=== PATIENT | female | born 1950 ===

== ENCOUNTER 2018-03-26 08:14 | Day surgery (SDC) | payer OTHER ==
[~2018-03-26] VITALS: Ht 162.6 cm; Wt 82.5 kg
[~2018-03-26 08:14] MED LIST: ADULT ASPIRIN81 MG PO; ALBUIS INH; ASPI325 PO; ASPI81EC PO; ATEN25; ATEN50 PO; CIPR500 PO; CVS GLUCOSAMIN PO; FISH1000 PO; FURO40 PO; HYDACE5 PO; HYDROCODON-ACE1 EAC3 PO; LOW DOSE ASPIRI81 MG PO; METO50ER PO; MINO100 PO; NAPR500 PO; Naprosyn375 MG PO; PANT20 PO; POTA10T PO; PRED20; WARF5 PO; Zofran8 MG PO
== END 2018-03-26 09:47 | disposition home or self-care (01) ==
LOC: ORSCMMR 08:14 → ORD 09:00 → ORSCMMR 09:00
PROVIDERS: Internal Medicine Gastroenterology
PROC: 0DBN8ZX Excision of Sigmoid Colon, Via Natural or Artificial Opening Endoscopic, Diagnostic (ICD-10-PCS; principal; 2018-03-26 09:00)
DX: Z12.11 Encounter for screening for malignant neoplasm of colon (principal); K63.5 Polyp of colon; D12.5 Benign neoplasm of sigmoid colon; K57.30 Diverticulosis of large intestine without perforation or abscess without bleeding; Z86.010 Personal history of colon polyps; Z85.42 Personal history of malignant neoplasm of other parts of uterus; Z85.72 Personal history of non-Hodgkin lymphomas; Z85.528 Personal history of other malignant neoplasm of kidney; I10 Essential (primary) hypertension; Z79.82 Long term (current) use of aspirin; Z79.899 Other long term (current) drug therapy
CPT/HCPCS: 88305; J7120

== ENCOUNTER 2024-01-13 07:13 | Day surgery (SDC) | payer OTHER ==
[~2024-01-13] VITALS: Ht 160 cm; Wt 79.6 kg
[~2024-01-13 07:13] MED LIST changes: +Amlodipine Bes2.5 MG PO; +Balanced Salt Epinephrine Irrigation Solution 500 mL IR SCH; +CYMBALTA60 M1 PO; +HYDROCODONE-AC1 EA19 PO; +Lidocaine HCl/Pf 1% 5 ML VIAL ONE; +Lidocaine HCl/Pf 1% 5 ML VIAL XX SCH; +Moxifloxacin HCL 0.5 MG/0.1 ML 0.4MLSYR LEFTEYE SCH; +NS 500 ML IV ONE; +OMEGA-3 FISH O1 EA13 PO; +PHENYLEPHRINE\\TROPICAMIDE\\TETRACAINE OPHTHALMIC DILATING SOLN LEFTEYE PRN; +PRAVASTATIN SOD10 MG PO; +Povidone-Iodine 450 DROP/30 ML Solution LEFTEYE SCH; +Povidone-Iodine 450 DROP/30 ML Solution ONE; +VITAMIN D5000 UNIT PO
[2024-01-13] MEDS ORDERED: NS 500 ML IV ONE (07:56)
--- NOTE | 2024-01-13 07:57 | NUR ---
01/13/24 0757 Rocky Walter CALL LIGHT WITHIN REACH. TETRACAINE IN LEFT EYE AT 0757 AND PLEDGETT IN AT 0758
[2024-01-13] MEDS ORDERED: Tetracaine HCl 0.5% Opth Soln 15 ml LEFTEYE ONE (08:28)
[2024-01-13] MEDS ORDERED: FentaNYL Citrate 50 MCG/ML 2 ML Injection ONE (08:31)
[2024-01-13] MEDS ORDERED: Ketorolac Tromethamine 30mg Vial ONE (08:32)
[2024-01-13] MEDS ORDERED: Midazolam HCl 1MG / ML 2ML Vial ONE (08:32)
[2024-01-13 09:00] VITALS: BP 178/94
== END 2024-01-13 09:18 | disposition home or self-care (01) ==
LOC: ORSCSDS 07:13
PROVIDERS: Student in an Organized Health Care Education/Training Program
PROC: 08RK3JZ Replacement of Left Lens with Synthetic Substitute, Percutaneous Approach (ICD-10-PCS; principal; 2024-01-13 08:30)
DX: H25.812 Combined forms of age-related cataract, left eye (principal); F41.9 Anxiety disorder, unspecified; I10 Essential (primary) hypertension; K21.9 Gastro-esophageal reflux disease without esophagitis; G62.9 Polyneuropathy, unspecified; Z87.891 Personal history of nicotine dependence; Z79.899 Other long term (current) drug therapy
CPT/HCPCS: J1885; J2001; J2250; J3010; J7040; V2632

== ENCOUNTER 2024-03-12 12:36 | Inpatient (IN) | payer OTHER ==
[2024-03-10 04:55] LABS: BASOPHILS ABSOLUTE AUTO 0.03 K/mm3 (0.00-0.23); BASOPHILS PERCENT AUTO 0 % (0-2); EOSINOPHILS PERCENT AUTO 0 % (0-6); Hematocrit 41.7 % (33.0-51.0); Hemoglobin 13.4 g/dL (11.5-16.0); IMMATURE GRAN ABSOLUTE AUTO 0.03 K/mm3 (0.00-0.10); IMMATURE GRAN PERCENT AUTO 0 % (0-1); LYMPHOCYTES ABSOLUTE AUTO 1.35 K/mm3 (0.84-5.20); LYMPHOCYTES PERCENT AUTO 12 % (21-46); MONOCYTES ABSOLUTE AUTO 0.72 K/mm3 (0.16-1.47); MONOCYTES PERCENT AUTO 6 % (4-13); Mean Corpuscular HGB 30.4 pg (26.0-34.0); Mean Corpuscular HGB Conc 32.1 g/dL (31.5-36.5); Mean Corpuscular Volume 95 fL (80-100); NEUTROPHILS ABSOLUTE AUTO 9.13 K/mm3 (1.96-9.15); NEUTROPHILS PERCENT AUTO 81 % (41-73); Platelet Count 296 K/mm3 (150-400); RDW Coefficient Variation 17.3 % (11.7-14.2); RDW Standard Deviation 59.7 fL (35.1-46.3); Red Blood Cell Count 4.41 M/mm3 (3.80-5.20); White Blood Cell Count 11.26 K/mm3 (4.00-11.30)
[2024-03-10 05:53] LABS: Bun/Creatinine Ratio 27.9 (12.0-20.0); Calcium, Blood 8.8 mg/dL (8.5-10.1); Creatinine, Blood 0.72 mg/dL (0.40-1.00); Magnesium, Blood 2.3 mg/dL (1.6-2.4)
[~2024-03-12] VITALS: Ht 154.9 cm; Wt 97.3 kg
[2024-03-12 10:42] LABS: PCO2 Arterial 41.1 mmHg (35-45); PO2 Arterial 333 mmHg (80-100); pH Blood Arterial 7.17 (7.35-7.45)
[2024-03-12 11:20] LABS: BASOPHILS ABSOLUTE AUTO 0.04 K/mm3 (0.00-0.23); BASOPHILS PERCENT AUTO 0 % (0-2); EOSINOPHILS ABSOLUTE AUTO 0.06 K/mm3 (0.00-0.68); EOSINOPHILS PERCENT AUTO 1 % (0-6); Hematocrit 37.2 % (33.0-51.0); Hemoglobin 11.7 g/dL (11.5-16.0); IMMATURE GRAN ABSOLUTE AUTO 0.19 K/mm3 (0.00-0.10); IMMATURE GRAN PERCENT AUTO 2 % (0-1); LYMPHOCYTES ABSOLUTE AUTO 2.42 K/mm3 (0.84-5.20); LYMPHOCYTES PERCENT AUTO 20 % (21-46); MONOCYTES ABSOLUTE AUTO 0.98 K/mm3 (0.16-1.47); MONOCYTES PERCENT AUTO 8 % (4-13); Mean Corpuscular HGB 30.6 pg (26.0-34.0); Mean Corpuscular HGB Conc 31.5 g/dL (31.5-36.5); Mean Corpuscular Volume 97 fL (80-100); Mean Platelet Volume 10.5 fL (9.1-12.4); NEUTROPHILS ABSOLUTE AUTO 8.47 K/mm3 (1.96-9.15); NEUTROPHILS PERCENT AUTO 70 % (41-73); Platelet Count 218 K/mm3 (150-400); RDW Coefficient Variation 16.9 % (11.7-14.2); RDW Standard Deviation 60.5 fL (35.1-46.3); Red Blood Cell Count 3.82 M/mm3 (3.80-5.20); White Blood Cell Count 12.16 K/mm3 (4.00-11.30)
[2024-03-12 11:35] LABS: Albumin, Blood 2.2 g/dL (3.4-5.0); Albumin/Globulin Ratio 0.5 (0.8-1.8); Bilirubin, Total 0.8 mg/dL (0.1-1.0); Bun/Creatinine Ratio 26.5 (12.0-20.0); Calcium, Blood 8.1 mg/dL (8.5-10.1); Creatinine, Blood 0.75 mg/dL (0.40-1.00); Globulin, Blood 4.6 g/dL (2.2-4.0); Potassium, Blood 4.7 mmol/L (3.5-5.5); Total Protein, Blood 6.8 g/dL (6.4-8.2)
[2024-03-12 11:43] LABS: D-Dimer, Quantitative 2.61 mg/L FEU (0.00-0.52); International Normalized Ratio 1.1; Prothrombin Time Results 11.7 Sec (9.7-11.5)
[~2024-03-12 12:36] MED LIST changes: -Balanced Salt Epinephrine Irrigation Solution 500 mL IR SCH; +KETO.5OPSO LEFTEYE; -Lidocaine HCl/Pf 1% 5 ML VIAL ONE; -Lidocaine HCl/Pf 1% 5 ML VIAL XX SCH; -Moxifloxacin HCL 0.5 MG/0.1 ML 0.4MLSYR LEFTEYE SCH; -NS 500 ML IV ONE; +OCUFLOX511 LEFTEYE; -PHENYLEPHRINE\\TROPICAMIDE\\TETRACAINE OPHTHALMIC DILATING SOLN LEFTEYE PRN; +PRED FORTE5 M1 LEFTEYE; -Povidone-Iodine 450 DROP/30 ML Solution LEFTEYE SCH; -Povidone-Iodine 450 DROP/30 ML Solution ONE
[2024-03-12 14:20] LABS: Hematocrit 36.4 % (33.0-51.0); Hemoglobin 11.8 g/dL (11.5-16.0)
--- NOTE | 2024-03-12 14:35 | NUR ---
DUE TO ADMISSION ISSUES THE PT WAS MADE A NEW PROFILE TODAY. SEE LIFETIME SUMMARY FOR OTHER DETAILS THIS STAY. SHE CAME IN FOR AN ELECTIVE SURGERY ON 03/09 AND WAS SWITCHED TO INPAITENT TODAY AFTER A NEAR SYNCOPAL EPISODE.
[2024-03-12] MEDS ORDERED: OxyCODONE 5 mg/Acetamin 325 mg TABLET PO PRN (15:10)
[2024-03-12] MEDS ORDERED: Lactated Ringer's 1,000 ML IV SCH (15:15)
[2024-03-12] MEDS ORDERED: Acetaminophen 325 MG TABLET PO PRN (15:15)
[2024-03-12 15:20] VITALS: BP 89/68
[2024-03-12] MEDS ORDERED: OxyCODONE HCL 5 MG TAB PO PRN (15:20)
[2024-03-12] MEDS ORDERED: Promethazine HCl 25 MG Tab PO PRN (15:20)
[2024-03-12] MEDS ORDERED: Magnesium Hydroxide Conc 10 ML UDC PO PRN (15:20)
[2024-03-12] MEDS ORDERED: diphenhydrAMINE HCl 12.5 MG/5 ML 5MLUDC (Alcohol/Dye Free) PO PRN (15:25)
[2024-03-12] MEDS ORDERED: Bisacodyl 10 MG Supp PR PRN (15:25)
[2024-03-12] MEDS ORDERED: Ondansetron HCl 2 MG / ML 2ML Vial IV PRN (15:25)
[2024-03-12] MEDS ORDERED: Metoclopramide HCl 5MG / ML 2ML Vial IV PRN (15:25)
[2024-03-12 16:00] VITALS: BP 92/64
[2024-03-12 16:55] LABS: Anti-Xa UFH, PHA Monitoring <0.10 IU/mL
[2024-03-12] MEDS ORDERED: Dose Adjust by Pharmacy XX STA (17:08)
[2024-03-12] MEDS ORDERED: Heparin Sodium 5000 Units/ML 1ML MDV IV ONE ×2 (17:10→23:45)
[2024-03-12] MEDS ORDERED: Heparin Sodium,Porcine/0.5 NS 500 ML IV SCH (17:10)
[2024-03-12 17:52] VITALS: BP 111/67
--- NOTE | 2024-03-12 18:25 | NUR ---
SHIFT SUMMARY THE PT WAS A RAPID RESPONSE TODAY FROM 220. SHE HAS BEEN SR ON TELE, BP SOFT BUT STABLE, AND SHE DENIES ANY ANGINA OR CHEST PRESSURE. CT PE NEGATIVE, ECHO DONE TODAY PENDING RESULTS. PT WILL BE NPO AT 0000 PER HOSPITALIST TEAM. HEP GTT INFUSING. THE PT IS POD THREE AND DR. MACKEY WAS UPDATED ABOUT THE PT'S UP TRENDING TROP, EKG CHANGES, AND START OF HEP GTT. SHE IS WANITNG THE PT'S LEFT KNEE WRAPPED WITH UMESH WRAP AND FOR USE TO MONITOR FOR BLEEDING. ICE PACK PER MD ORDERS. THE PT HAS BEEN DROWSY BUT ORIENTED. SHE HAS DENIED PAIN EXCEPT WITH MOVEMENT SHE DOES HAVE SOME PAIN. WE TRIED GETTING THE PT TO THE BSC AND SHE WAS UNABLE TO WALK, BUT WAS ANXIOUS BECAUSE OF HER NEAR SYNCOPAL EPISODE EARLIER IN THE DAY. WHILE STANDING THE PT DENIED DIZZINESS. SHE WAS ABLE TO USE THE BSC AND HAS HAD 400CC OUT SO FAR THIS SHIFT. THE PT WAS TITRAITED TO RA AND HER SP02 DROPPED TO HIGH 70'S. SHE IS ON 2L NC W/ SP02 >90% SHE DENIES ANY SOB. SEE NOTES FOR ANY UPDATES.
[2024-03-12 20:09] VITALS: BP 110/73
[2024-03-12] MEDS ORDERED: Docusate Sodium 100 MG Cap PO PRN (21:00)
[2024-03-12 23:09] VITALS: BP 117/65
[2024-03-13 03:17] VITALS: BP 125/69
--- NOTE | 2024-03-13 06:07 | NUR ---
SHIFT SUMMARY: HEP GTT RUNNING, NO SIGNS OF NEW BLEEDING ON L KNEE INCISION. TROPONINS NOT YET PEAKED. NEURO: PT LETHARGIC AT BEGINNING OF SHIFT. QUICKLY FALLING ASLEEP AFTER BEING WOKEN UP. FOLLOWED DIRECTIONS, PUPILS, BRISK AND EQUAL. BASELINE RIGHT SHOULDER WEAKNESS PER PT. A/OX4. CARDIAC: ECHO SHOWED THROMBUS IN RV. PT ON TELE WITH NO ECTOPY NOTED. LUNGS: PT ON 1L THROUGHOUT THE NIGHT. PT WAS SHALLOW BREATHING AND THEN WOULD HAVE PAUSES IN RESPIRATIONS WHILE SLEEPING. PT EDUCATED ON NARCOTIC USE UNTIL RESPIRATIONS NORMALIZED. GI/: PT UTILIZING BEDPAN. NPO SINCE MIDNIGHT. LAST BM 03/13/24 SKIN: AQUACELMEDIPORE DRESSING TO L KNEE INCISION, FOLLOWED BY UMESH WRAP AND COOLING THERAPY. NO NEW SHADOWING.
[2024-03-13 06:40] LABS: BASOPHILS ABSOLUTE AUTO 0.04 K/mm3 (0.00-0.23); BASOPHILS PERCENT AUTO 0 % (0-2); EOSINOPHILS ABSOLUTE AUTO 0.22 K/mm3 (0.00-0.68); EOSINOPHILS PERCENT AUTO 2 % (0-6); Hematocrit 35.2 % (33.0-51.0); Hemoglobin 11.1 g/dL (11.5-16.0); IMMATURE GRAN ABSOLUTE AUTO 0.05 K/mm3 (0.00-0.10); IMMATURE GRAN PERCENT AUTO 0 % (0-1); LYMPHOCYTES ABSOLUTE AUTO 3.14 K/mm3 (0.84-5.20); LYMPHOCYTES PERCENT AUTO 27 % (21-46); MONOCYTES ABSOLUTE AUTO 1.05 K/mm3 (0.16-1.47); MONOCYTES PERCENT AUTO 9 % (4-13); Mean Corpuscular HGB 30.3 pg (26.0-34.0); Mean Corpuscular HGB Conc 31.5 g/dL (31.5-36.5); Mean Corpuscular Volume 96 fL (80-100); Mean Platelet Volume 10.7 fL (9.1-12.4); NEUTROPHILS ABSOLUTE AUTO 7.01 K/mm3 (1.96-9.15); NEUTROPHILS PERCENT AUTO 61 % (41-73); NRBC ABSOLUTE 0.02 K/mm3 (0.00-0.02); NRBC Auto 0.2 /100 WBC (0.0-0.2); Platelet Count 234 K/mm3 (150-400); RDW Coefficient Variation 16.8 % (11.7-14.2); RDW Standard Deviation 59.4 fL (35.1-46.3); Red Blood Cell Count 3.66 M/mm3 (3.80-5.20); White Blood Cell Count 11.51 K/mm3 (4.00-11.30)
[2024-03-13 07:00] LABS: Alanine Aminotransfer (ALT/SGP 25 U/L (12-78); Albumin, Blood 2.1 g/dL (3.4-5.0); Albumin/Globulin Ratio 0.5 (0.8-1.8); Alk Phos 92 U/L (50-136); Anion Gap 8 mmol/L (3-11); Aspartate Aminotrans (AST/SGOT 49 U/L (12-37); Bilirubin, Total 0.8 mg/dL (0.1-1.0); Blood Urea Nitrogen 20 mg/dL (8-24); Bun/Creatinine Ratio 28.3 (12.0-20.0); CO2, Blood 27 mmol/L (21-32); Chloride, Blood 101 mmol/L (98-108); Cholesterol 128 mg/dL (50-200); Creatinine, Blood 0.71 mg/dL (0.40-1.00); Globulin, Blood 4.4 g/dL (2.2-4.0); Glomerular Filtration Rate 89 (60-); Glucose, Blood 108 mg/dL (70-99); HDL Cholesterol 42 mg/dL (>39); LDL/HDL RATIO 1.6; Low Density Lipoprotein Chol 67 mg/dL (0-110); Potassium, Blood 4.6 mmol/L (3.5-5.5); Sodium, Blood 131 mmol/L (136-145); Total Protein, Blood 6.5 g/dL (6.4-8.2); Triglycerides 95 mg/dL (30-160); Very Low Density Lipoprot Chol 19 mg/dL (6-32)
[2024-03-13] MEDS ORDERED: Dose Adjust by Pharmacy XX STA ×2 (07:26→14:38)
[2024-03-13] MEDS ORDERED: Heparin Sodium 5000 Units/ML 1ML MDV IV ONE ×2 (07:30→22:00)
[2024-03-13 07:39] VITALS: BP 123/110
[2024-03-13] MEDS ORDERED: Atorvastatin 40 MG Tab PO SCH (09:00)
[2024-03-13] MEDS ORDERED: Enoxaparin 40 MG/0.4 ML SYR SC SCH (09:00)
[2024-03-13] MEDS ORDERED: Aspirin 81 MG TabEC PO SCH (09:00)
[2024-03-13] MEDS ORDERED: DULoxetine HCL 30 MG Cap DR PO SCH (09:00)
[2024-03-13] MEDS ORDERED: Polyethylene Glycol 3350 17 gm PO PRN (10:10)
[2024-03-13 11:45] VITALS: BP 87/55
[2024-03-13 15:50] VITALS: BP 105/65
--- NOTE | 2024-03-13 18:36 | NUR ---
SHIFT SUMMARY THE PT IS DROWSY BUT ORIENTEDX4, AND CALLS APPROPRAITELY. SHE HAS A PW SET TO LIS. THE PT IS A Q2 TURN. SHE WAS MEDICATED ONCE FOR LEFT KNEE PAIN AFTER ATTEMPTING TO WORK WITH PT. SHE IS POD4 FOR A LEFT TOTAL KNEE. THE PT HAS CYROTHERAPY IN PLACE AND HER L KNEE IS WRAPPED WITH UMESH WRAP AT THIS TIME. THE PT IS ON A HEP GTT BEING MANAGED BY PHARMACY. NO ACUTE EVENTS.
[2024-03-13 19:38] VITALS: BP 112/69
[2024-03-13 23:32] VITALS: BP 112/74
[2024-03-14 04:15] VITALS: BP 130/81
--- NOTE | 2024-03-14 04:52 | NUR ---
SHIFT SUMMARY- NO NEW CHANGES NEURO-A/OX4, MOVES ALL EXTREMETIES. BASELINE WEAKNESS TO RIGHT SHOULDER. CARDIAC: HEPARIN GTT. TRACE BLE EDEMA. BOONE HOSE OFF THIS SHIFT. LUNGS: PT REMAINS ON 1L NC. SLEEPING WITH HOB ELEVATED. LESS APNEIC PERIODS THIS SHIFT. GI/: PUREWICK IN PLACE. CLEAR YELLOW URINE. LAST BM 03/13/24. SKIN: AQUACEL MEDIPORE DRESSING IN PLACE. NO NEW SHADOWING. NO NEW BRUISING TO L KNEE. UMESH BANDAGE IN PLACE. CRYOTHERAPY TO LEFT KNEE. PT REPOSITIONED WITH STAFF EVERY Q2 HOURS.
[2024-03-14 05:01] LABS: BASOPHILS ABSOLUTE AUTO 0.06 K/mm3 (0.00-0.23); BASOPHILS PERCENT AUTO 1 % (0-2); EOSINOPHILS PERCENT AUTO 3 % (0-6); Hematocrit 34.9 % (33.0-51.0); Hemoglobin 11.3 g/dL (11.5-16.0); IMMATURE GRAN ABSOLUTE AUTO 0.08 K/mm3 (0.00-0.10); IMMATURE GRAN PERCENT AUTO 1 % (0-1); LYMPHOCYTES ABSOLUTE AUTO 3.39 K/mm3 (0.84-5.20); LYMPHOCYTES PERCENT AUTO 29 % (21-46); MONOCYTES ABSOLUTE AUTO 1.13 K/mm3 (0.16-1.47); MONOCYTES PERCENT AUTO 10 % (4-13); Mean Corpuscular HGB 30.5 pg (26.0-34.0); Mean Corpuscular HGB Conc 32.4 g/dL (31.5-36.5); Mean Corpuscular Volume 94 fL (80-100); Mean Platelet Volume 10.9 fL (9.1-12.4); NEUTROPHILS ABSOLUTE AUTO 6.67 K/mm3 (1.96-9.15); NEUTROPHILS PERCENT AUTO 57 % (41-73); NRBC ABSOLUTE 0.03 K/mm3 (0.00-0.02); NRBC Auto 0.3 /100 WBC (0.0-0.2); Platelet Count 286 K/mm3 (150-400); RDW Coefficient Variation 17.1 % (11.7-14.2); RDW Standard Deviation 58.5 fL (35.1-46.3); Red Blood Cell Count 3.71 M/mm3 (3.80-5.20); White Blood Cell Count 11.73 K/mm3 (4.00-11.30)
[2024-03-14] MEDS ORDERED: Dose Adjust by Pharmacy XX STA (05:12)
[2024-03-14 05:39] LABS: Bun/Creatinine Ratio 28.3 (12.0-20.0); Calcium, Blood 8.4 mg/dL (8.5-10.1); Creatinine, Blood 0.64 mg/dL (0.40-1.00); Potassium, Blood 4.4 mmol/L (3.5-5.5)
[2024-03-14 07:24] VITALS: BP 107/88
[2024-03-14 11:00] VITALS: BP 127/76
--- NOTE | 2024-03-14 11:32 | NUR ---
MORNING SUMMARY THE PT IS POD 5 FOR A TOTAL LEFT KNEE. SHE REMAINS A&OX4, VS STABLE, AND CALLS APPROPRAITELY. SHE HAS BEEN SR ON TELE, BP STABLE, AND SHE IS ON 1L NC TO MAINTAIN SP02 >90%. THE PT WAS TRIALED ON RA AND SHE DESATURATED TO SP02 80'S, PT BACK ON 1L NC. SHE DENIES SOB, BUT THERE IS NOTED CRACKLES IN THE PT'S LUNG BASES. THE INCENTIVESPIROMETER AND DEEP BREATHING HAS BEEN ENCOURAGE T/O THE MORNING. THE PT WAS C/O 5/10 LEFT KNEE PAIN AND WAS MEDICATED WITH TYLENOL. CYROTHERAPY REMAINS IN PLACE. DRESSING REMAINS INTACT, UMESH WRAP OVER KNEE D/T HEPARIN AND LOVENOX. LATE MORNING THE PT WAS SWITCHED FROM A HEP GTT TO LOVENOX. NO SIGNS OF BLEEDING NOTED. PW SET UP TO SUCTION AND Q2 TURNS. THE PT HAS NOT BEEN SUCCESFUL WITH AMBULATING SINCE HER NEAR SYNCOPAL EPISODE ON 03/12. FAMILY AT THE BEDSIDE AND UPDATED ON CARE.SHE IS NOW SURGICAL STATUS AND AWAITING FOR A ROOM ASSIGNMENT. SEE NOTES FOR UPDATES.
[2024-03-14] MEDS ORDERED: Enoxaparin 100 MG/ML 1ML SYR SC SCH (12:00)
--- NOTE | 2024-03-14 13:03 | NUR ---
PT TRANSFERED TO 212 REPORT GIVEN TO KELLI Arroyo RN. FAMILY AT BEDSIDE AND UPDATED ON TRANSFER TO SURGICAL FLOOR.
--- NOTE | 2024-03-14 13:05 | NUR ---
PCU 10 TO 212 PT BROUGHT OVER TO ROOM 212 FROM PCU ON HER BED, ORIENTED TO NEW ROOM, POLAR PACK ADJUSTED AFTER VISUALIZING HER DRESSING, FAMILY AT BEDSIDE, DISCUSSED TRANSITIONING FROM PUREWICK TO BEDPAN OR THE MORE IDEAL BSC. NO CONCERNS AT THIS TIME.
[2024-03-14 14:44] VITALS: BP 116/68
--- NOTE | 2024-03-14 17:29 | NUR ---
SHIFT SUMMARY POD5 L TKA, A/OX4, VSS, TOLERATING PO, DISCONTINUED USE OF THE PUREWICK AND USED A BEDPAN WITH PLAN TO USE BSC TOMORROW. PAIN WELL MANAGED, NO CHANGE IN DRAINAGE ON AQUACELL DRESSING.
[2024-03-14 22:19] VITALS: BP 139/75
[2024-03-15 03:55] VITALS: BP 137/82
[2024-03-15 04:46] LABS: BASOPHILS ABSOLUTE AUTO 0.08 K/mm3 (0.00-0.23); BASOPHILS PERCENT AUTO 1 % (0-2); EOSINOPHILS ABSOLUTE AUTO 0.45 K/mm3 (0.00-0.68); EOSINOPHILS PERCENT AUTO 4 % (0-6); Hematocrit 32.9 % (33.0-51.0); Hemoglobin 10.8 g/dL (11.5-16.0); IMMATURE GRAN ABSOLUTE AUTO 0.08 K/mm3 (0.00-0.10); IMMATURE GRAN PERCENT AUTO 1 % (0-1); LYMPHOCYTES ABSOLUTE AUTO 3.65 K/mm3 (0.84-5.20); LYMPHOCYTES PERCENT AUTO 31 % (21-46); MONOCYTES ABSOLUTE AUTO 1.17 K/mm3 (0.16-1.47); MONOCYTES PERCENT AUTO 10 % (4-13); Mean Corpuscular HGB 30.8 pg (26.0-34.0); Mean Corpuscular HGB Conc 32.8 g/dL (31.5-36.5); Mean Corpuscular Volume 94 fL (80-100); Mean Platelet Volume 10.5 fL (9.1-12.4); NEUTROPHILS PERCENT AUTO 54 % (41-73); NRBC ABSOLUTE 0.03 K/mm3 (0.00-0.02); NRBC Auto 0.3 /100 WBC (0.0-0.2); Platelet Count 310 K/mm3 (150-400); RDW Coefficient Variation 17.1 % (11.7-14.2); RDW Standard Deviation 57.6 fL (35.1-46.3); Red Blood Cell Count 3.51 M/mm3 (3.80-5.20); White Blood Cell Count 11.83 K/mm3 (4.00-11.30)
--- NOTE | 2024-03-15 06:48 | NUR ---
PT STABLE THROUGHOUT SHIFT. PT DID REQUIRE PAIN COVERAGE ONCE AND HAD GOOD EFFECT. PT DOES STILL REQUIRE O2 AT THIS TIME. PT HAS TOLERATED BEING MOVED IN BED TO PLACE ON BED FENG WELL. PT HAS HAD GOOD URINARY OUTPUT THROUGHOUT THE SHIFT. PT DOES HAVE A SMALL BLANACHABLE RED SPOT ON COCCYX THAT IS NOW COVERED WITH A FOAM DRESSING. DRESSING ON SURGICAL SITE REMAINS UNCHANGED AND INTACT.
[2024-03-15 07:28] VITALS: BP 137/74
[2024-03-15 15:44] VITALS: BP 153/88
--- NOTE | 2024-03-15 18:25 | NUR ---
SHIFT SUMMARY PT HAS CONTINUED TO BE WEAK. WAS ONLY ABLE TO STAND 3-4 TIMES w/ THERAPY. UNABLE TO TAKE STEPS OR PIVOT. 1L NC CONTINES; ENCOURAGED TCDB. SCDs & BOONE HOSE REPLACED TODAY. DOUG DRSG CHANGED. EATING & DRINKING WELL. MAKING GOOD URINE.
[2024-03-15 19:17] VITALS: BP 119/83
[2024-03-16 03:21] VITALS: BP 149/89
[2024-03-16 04:26] LABS: BASOPHILS ABSOLUTE AUTO 0.07 K/mm3 (0.00-0.23); BASOPHILS PERCENT AUTO 1 % (0-2); EOSINOPHILS ABSOLUTE AUTO 0.47 K/mm3 (0.00-0.68); EOSINOPHILS PERCENT AUTO 5 % (0-6); Hematocrit 33.3 % (33.0-51.0); Hemoglobin 11.1 g/dL (11.5-16.0); IMMATURE GRAN ABSOLUTE AUTO 0.13 K/mm3 (0.00-0.10); IMMATURE GRAN PERCENT AUTO 1 % (0-1); LYMPHOCYTES ABSOLUTE AUTO 3.09 K/mm3 (0.84-5.20); LYMPHOCYTES PERCENT AUTO 30 % (21-46); MONOCYTES PERCENT AUTO 12 % (4-13); Mean Corpuscular HGB 30.7 pg (26.0-34.0); Mean Corpuscular HGB Conc 33.3 g/dL (31.5-36.5); Mean Corpuscular Volume 92 fL (80-100); NEUTROPHILS PERCENT AUTO 53 % (41-73); NRBC ABSOLUTE 0.05 K/mm3 (0.00-0.02); NRBC Auto 0.5 /100 WBC (0.0-0.2); Platelet Count 327 K/mm3 (150-400); RDW Coefficient Variation 17.1 % (11.7-14.2); RDW Standard Deviation 56.1 fL (35.1-46.3); Red Blood Cell Count 3.61 M/mm3 (3.80-5.20); White Blood Cell Count 10.46 K/mm3 (4.00-11.30)
[2024-03-16 04:49] LABS: Bun/Creatinine Ratio 25.3 (12.0-20.0); Calcium, Blood 8.5 mg/dL (8.5-10.1); Creatinine, Blood 0.67 mg/dL (0.40-1.00); Potassium, Blood 4.3 mmol/L (3.5-5.5)
--- NOTE | 2024-03-16 05:14 | NUR ---
SUMMARY- PT HAS BEEN RESTING WELL THROUGH THE HIFT. PT HAS BEEN VOIDING WELL. PT HAS BEEN REPOSITIONED FREQUENTLY. PT IS ABLE TO ASSIST IN TURNING AND BEING PLACED ON BED FENG. PT HAD NO COMPLAINTS. CALL LIGHT IN REACH.
[2024-03-16 07:31] VITALS: BP 136/75
[2024-03-16 14:12] VITALS: BP 119/68
--- NOTE | 2024-03-16 18:44 | NUR ---
SHIFT SUMMARY EATING, DRINKING, VOIDING USING BEDPAN. WAS ABLE TO STAND w/ THERAPY AGAIN TODAY. PLANS BEING ARRANGED FOR [place] TO [facility] TOMORROW.
[2024-03-16 19:30] VITALS: BP 127/63
[2024-03-17 03:29] VITALS: BP 127/72
--- NOTE | 2024-03-17 04:08 | NUR ---
SHIFT SUMMARY CHESTER WAS ALERT AND FULLY ORIENTED ON ASSESSMENT. PT C/O PAIN TO L KNEE. AQUACEL DRESSING C/D/I. MEDICATED FOR PAIN T/O NIGHT W/ MODERATE RELIEF. PT TURNED Q2, REDNESS TO COCCYX NOTED MEPILEX IN PLACE. NO NEW COMPLAINTS, NO ACUTE EVENTS, NOT CHANGES TO PT CONDITION NOTED.
[2024-03-17 07:17] VITALS: BP 118/57
[2024-03-17] MEDS ORDERED: Apixaban 5 MG Tab PO SCH (09:00)
[2024-03-17] MEDS ORDERED: OxyCODONE HCL 5 MG TAB PO PRN (10:50)
[2024-03-17 14:52] VITALS: BP 128/74
[2024-03-17 19:37] VITALS: BP 136/73
--- NOTE | 2024-03-17 20:03 | NUR ---
SHIFT SUMMARY PT REPORTS INCREASE IN PAIN TO LLE. DR MACKEY INTO SEE PT. PLANS TO GO TO SNF DELAYED DUE TO COVID +. CONT's TO BE ABLE TO STAND BUT NO STEPS.
[2024-03-18 03:50] VITALS: BP 129/72
--- NOTE | 2024-03-18 06:08 | NUR ---
SHIFT SUMMARY POD 9 L TKA PT RESTED T/O NIGHT. PAIN MANAGED PER EMAR. TOLERAITNG PO INTAKE, VOIDING. PT USING BEDPAN. PT NOW HAS THIGH HIGH STOCKING ON LLE. DRESSING TO L KNEE IS C/D/I. PT ON 1L NC FOR SUPPORT. VSS. NO OTHER CONCERNS AT THIS TIME, CALL LIGHT WITHIN REACH
[2024-03-18 07:46] VITALS: BP 116/62
[2024-03-18] MEDS ORDERED: ACET325 PO (16:16)
[2024-03-18] MEDS ORDERED: Floxin10 ML (16:17)
[2024-03-18] MEDS ORDERED: ELIQUIS5 M2 PO (16:35)
[2024-03-18] MEDS ORDERED: OXAYDO5 M1 PO (16:41)
[2024-03-18] MEDS ORDERED: Apixaban 5 MG Tab PO ONE (16:50)
[2024-03-18] MEDS ORDERED: ATOR40TA PO (17:28)
--- NOTE | 2024-03-18 17:59 | NUR ---
DISCHARGE PT DISCHARGING WITH HOME HEALTH. AT BEDSIDE, INSTRUCTIONS GONE OVER WITH PATIENT AND . ALL QUESTIONS ANSWERED. DRESSING CHANGED PRIOR TO DISCHARGE. EXTRA DRESSINGS SENT. PT REMAINS A 2 PERSON TRANSFER WITH GAIT BELT AND WALKER. VERY DECONDITIONED. VOIDING WELL, TOLERATING DIET WELL. THEY PLAN TO FOLLOW UP WITH CARDIOLOGY AND PCP ON DISCHARGE.
--- NOTE | 2024-03-18 18:30 | NUR ---
PT LEFT WITH TRANSPORT AT THIS TIME, TOOK ALL BELONGINGS PRIOR TO TRANSPORT ARRIVAL, PT CONNECTED TO PORTABLE OXYGEN TANK AT 2L. SUPPLIES DELIVERED TO HOME PRIOR TO LEAVING.
[2024-03-24] MEDS ORDERED: Apixaban 5 MG Tab PO SCH (09:00)
== END 2024-03-18 18:00 | disposition home health service (06) | DRG 280 ==
LOC: PCU 12:36 → SURS 12:36
PROVIDERS: Hospitalist; Orthopaedic Surgery; ADMIT Hospitalist
PROC: 4A033R1 Measurement of Arterial Saturation, Peripheral, Percutaneous Approach (ICD-10-PCS; principal; 2024-03-12)
DX: I20.0 Unstable angina (principal); J96.01 Acute respiratory failure with hypoxia; I21.A1 Myocardial infarction type 2; E87.21 Acute metabolic acidosis; R64 Cachexia; Z68.1 Body mass index [BMI] 19.9 or less, adult; Z88.0 Allergy status to penicillin; Z88.8 Allergy status to other drugs, medicaments and biological substances; Z85.528 Personal history of other malignant neoplasm of kidney; Z90.5 Acquired absence of kidney; Z85.72 Personal history of non-Hodgkin lymphomas; Z79.899 Other long term (current) drug therapy; Z90.710 Acquired absence of both cervix and uterus; Z86.718 Personal history of other venous thrombosis and embolism; Z92.21 Personal history of antineoplastic chemotherapy; Z85.42 Personal history of malignant neoplasm of other parts of uterus; J44.9 Chronic obstructive pulmonary disease, unspecified; E78.5 Hyperlipidemia, unspecified; I10 Essential (primary) hypertension; Z96.652 Presence of left artificial knee joint
CPT/HCPCS: 36415; 36600; 71260; 73560-LT; 80048; 80053; 80061; 82803; 83036; 83605; 83735; 84443; 84484; 85014; 85018; 85025; 85379; 85520; 85610; 85730; 87040; 93005; 93010; 94760; 94761; 94762; 97110; 97116; 97140; 97162; 97530; 97530-CQ; A9270; C1713; C1776; C8929; J0171; J0690; J0735; J1100; J1170; J1644; J1650; J1885; J2371; J2405; J2704; J2765; J2795; J3010; J7030; J7120; Q9957; Q9967

== ENCOUNTER 2024-03-30 12:46 | Inpatient (IN) | payer OTHER ==
[~2024-03-30] VITALS: Ht 160 cm; Wt 82.3 kg
[~2024-03-30 12:46] MED LIST changes: +ACET325 PO; +ATOR40TA PO; +ELIQUIS5 M2 PO; +Floxin10 ML; +OXAYDO5 M1 PO
[2024-03-30 14:21] LABS: BASOPHILS ABSOLUTE AUTO 0.05 K/mm3 (0.00-0.23); BASOPHILS PERCENT AUTO 0 % (0-2); EOSINOPHILS ABSOLUTE AUTO 0.27 K/mm3 (0.00-0.68); EOSINOPHILS PERCENT AUTO 2 % (0-6); Hematocrit 30.2 % (33.0-51.0); Hemoglobin 9.5 g/dL (11.5-16.0); IMMATURE GRAN ABSOLUTE AUTO 0.07 K/mm3 (0.00-0.10); IMMATURE GRAN PERCENT AUTO 1 % (0-1); LYMPHOCYTES PERCENT AUTO 16 % (21-46); MONOCYTES ABSOLUTE AUTO 1.44 K/mm3 (0.16-1.47); MONOCYTES PERCENT AUTO 12 % (4-13); Mean Corpuscular HGB 30.5 pg (26.0-34.0); Mean Corpuscular HGB Conc 31.5 g/dL (31.5-36.5); Mean Corpuscular Volume 97 fL (80-100); Mean Platelet Volume 8.9 fL (9.1-12.4); NEUTROPHILS ABSOLUTE AUTO 8.31 K/mm3 (1.96-9.15); NEUTROPHILS PERCENT AUTO 69 % (41-73); NRBC ABSOLUTE 0.14 K/mm3 (0.00-0.02); NRBC Auto 1.2 /100 WBC (0.0-0.2); Platelet Count 594 K/mm3 (150-400); RDW Coefficient Variation 21.3 % (11.7-14.2); RDW Standard Deviation 71.2 fL (35.1-46.3); Red Blood Cell Count 3.11 M/mm3 (3.80-5.20); White Blood Cell Count 12.04 K/mm3 (4.00-11.30)
[2024-03-30 14:43] LABS: Albumin, Blood 2.3 g/dL (3.4-5.0); Albumin/Globulin Ratio 0.5 (0.8-1.8); Bilirubin, Total 2.1 mg/dL (0.1-1.0); Bun/Creatinine Ratio 20.7 (12.0-20.0); Calcium, Blood 8.5 mg/dL (8.5-10.1); Creatinine, Blood 0.68 mg/dL (0.40-1.00); Globulin, Blood 4.9 g/dL (2.2-4.0); Potassium, Blood 4.3 mmol/L (3.5-5.5); Total Protein, Blood 7.2 g/dL (6.4-8.2)
[2024-03-30 14:58] LABS: Influenza A, PCR NEGATIVE (NEGATIVE); Influenza B, PCR NEGATIVE (NEGATIVE); Resp Syncytial Virus, PCR NEGATIVE (NEGATIVE); SARS-Cov-2 (COVID-19) PCR, MMC NEGATIVE (NEGATIVE)
[2024-03-30] MEDS ORDERED: Furosemide 10 MG / ML 2ML Vial IV ONE (16:10)
[2024-03-30] MEDS ORDERED: Acetaminophen 325 MG TABLET PO PRN (17:30)
[2024-03-30] MEDS ORDERED: Ondansetron HCl 2 MG / ML 2ML Vial IV PRN (17:30)
[2024-03-30] MEDS ORDERED: OxyCODONE HCL 5 MG TAB PO PRN (17:35)
[2024-03-30] MEDS ORDERED: Albuterol 2.5 MG/3 ML VIAL INH PRN (18:55)
[2024-03-30] MEDS ORDERED: Apixaban 5 MG Tab PO SCH (21:00)
[2024-03-30 23:04] VITALS: BP 111/66
[2024-03-31 03:24] VITALS: BP 116/68
[2024-03-31 04:33] LABS: Hematocrit 28.6 % (33.0-51.0); Mean Corpuscular HGB 30.6 pg (26.0-34.0); Mean Corpuscular HGB Conc 31.5 g/dL (31.5-36.5); Mean Corpuscular Volume 97 fL (80-100); Mean Platelet Volume 8.8 fL (9.1-12.4); Platelet Count 635 K/mm3 (150-400); RDW Coefficient Variation 21.3 % (11.7-14.2); Red Blood Cell Count 2.94 M/mm3 (3.80-5.20); White Blood Cell Count 9.87 K/mm3 (4.00-11.30)
[2024-03-31 05:06] LABS: Albumin, Blood 2.3 g/dL (3.4-5.0); Albumin/Globulin Ratio 0.5 (0.8-1.8); Bun/Creatinine Ratio 18.8 (12.0-20.0); Calcium, Blood 8.4 mg/dL (8.5-10.1); Creatinine, Blood 0.74 mg/dL (0.40-1.00); Globulin, Blood 4.9 g/dL (2.2-4.0); Magnesium, Blood 2.7 mg/dL (1.6-2.4); Potassium, Blood 4.1 mmol/L (3.5-5.5); Total Protein, Blood 7.2 g/dL (6.4-8.2)
[2024-03-31 07:46] VITALS: BP 109/84
[2024-03-31] MEDS ORDERED: Aspirin 81 MG Chew PO SCH (09:00)
[2024-03-31] MEDS ORDERED: Atorvastatin 40 MG Tab PO SCH (09:00)
[2024-03-31] MEDS ORDERED: Miconazole Nitrate 2% 85 GM PWD TOP SCH ×2 (10:41→14:00)
[2024-03-31 11:44] VITALS: BP 99/81
--- NOTE | 2024-03-31 12:35 | NUR ---
Pt requeted information on advance directives. Review of directive with . Pt does not have a polst. Pt eating lunch she states she is uncomfortable and slightly labored. Pt frail and slightly ashen. Review of patient with . At this time they want full treatment. They have ten grandchildren and they want to give them a buffer. They are also talking with family about making her a DNR in the future. Polst completed awaiting physician signature.
[2024-03-31 16:27] VITALS: BP 120/70
--- NOTE | 2024-03-31 17:28 | NUR ---
PT SUMMARY; PT HAS BEEN PLEASANT AND COOPERATIVE FOR THE SHIFT, ABLE TO MAKE NEEDS KNOWN. VITALS HRR SR 80'S, SBP 120'S, SATS ABOVE 90% ON 6-10L OF O2, AFEBRILE. PT C/O PAIN ON KNEE WHEN MOVED AND COCCYX, PT HAS BEEN REPOSITIONED FOR COMFORT, MEDICATED WIHT PO OXYCODONE AND TYLENOL, PT RECEIVED A BED BATH TODAY, NYSTATIN POWDER UNDER BREASTS PT HAS REDNESS AND SKIN TEAR WITH SOME ODOR SILVER CLOTH IN PLACE. PUREWICK PER SUCTION PT WITH ADEQUATE URINE AMOUNT FOR THE SHIFT. AT THE BEDSIDE MOST OF THE SHIFT AWARE OF THE PLAN OF CARE. ALSO SHELIA DELUNA WAS GIVEN UPDATE VIA PHONE PER PT'S PERMISSION. PT ABLE TO WORK WITH PT/OT HAS BEEN UP IN THE RECLINER THIS MORNING, 2PA FOR TRANSFERS. DR ADDIS MACKEY CAME BY AND SEE PT TODAY RECOMMENDED ICE PACK AND BOONE HOSE ON LEFT LEG BOTH WERE PLACED THIS AFTERNOON, TO BRING IN COOLING MACHINE FORM HOME. PT FOR SNF PLACEMENT. NO OTHER ISSUES REPORTED FOR THE SHIFT, CALL LIGHTS IN REACH WILL REPORT TO ONCOMING SHIFT
[2024-03-31 20:00] VITALS: BP 103/62
[2024-03-31] MEDS ORDERED: Docusate Sodium 100 MG Cap PO SCH (22:00)
[2024-03-31 23:09] VITALS: BP 105/63
[2024-04-01 04:10] VITALS: BP 128/77
[2024-04-01 04:30] LABS: BASOPHILS ABSOLUTE AUTO 0.05 K/mm3 (0.00-0.23); BASOPHILS PERCENT AUTO 1 % (0-2); EOSINOPHILS ABSOLUTE AUTO 0.54 K/mm3 (0.00-0.68); EOSINOPHILS PERCENT AUTO 6 % (0-6); Hematocrit 28.3 % (33.0-51.0); Hemoglobin 8.8 g/dL (11.5-16.0); IMMATURE GRAN ABSOLUTE AUTO 0.03 K/mm3 (0.00-0.10); IMMATURE GRAN PERCENT AUTO 0 % (0-1); LYMPHOCYTES ABSOLUTE AUTO 1.57 K/mm3 (0.84-5.20); LYMPHOCYTES PERCENT AUTO 17 % (21-46); MONOCYTES ABSOLUTE AUTO 1.14 K/mm3 (0.16-1.47); MONOCYTES PERCENT AUTO 12 % (4-13); Mean Corpuscular HGB 30.2 pg (26.0-34.0); Mean Corpuscular HGB Conc 31.1 g/dL (31.5-36.5); Mean Corpuscular Volume 97 fL (80-100); Mean Platelet Volume 8.9 fL (9.1-12.4); NEUTROPHILS ABSOLUTE AUTO 5.84 K/mm3 (1.96-9.15); NEUTROPHILS PERCENT AUTO 64 % (41-73); NRBC ABSOLUTE 0.11 K/mm3 (0.00-0.02); NRBC Auto 1.2 /100 WBC (0.0-0.2); Platelet Count 594 K/mm3 (150-400); RDW Coefficient Variation 21.3 % (11.7-14.2); RDW Standard Deviation 72.6 fL (35.1-46.3); Red Blood Cell Count 2.91 M/mm3 (3.80-5.20); White Blood Cell Count 9.17 K/mm3 (4.00-11.30)
[2024-04-01 04:59] LABS: Bun/Creatinine Ratio 22.6 (12.0-20.0); Calcium, Blood 8.4 mg/dL (8.5-10.1); Creatinine, Blood 0.67 mg/dL (0.40-1.00); Potassium, Blood 4.3 mmol/L (3.5-5.5)
[2024-04-01 07:53] VITALS: BP 131/77
--- NOTE | 2024-04-01 10:32 | NUR ---
am note this rn assumed care at 0700. vital signs stable. tele sinus rhythm. spo2 >90% on 8-10l high flow nc. patient is alert and oriented x4. neuro is intact. patient is able to make needs known. denies chest pain/pressure, pain, or shortness of breath. patient has pressure sore to coccyx mepilex applied and cleaned. patient has yeast infection under bilateral breasts with excoriation. q2 reposition for skin care. see shift assessment for further detials. giselle in to see patient and discussed plan of care with respiratory support and went over advance stage of heart failure. daughter at bedside for this. plan of care up to date
[2024-04-01 11:19] VITALS: BP 108/69
[2024-04-01] MEDS ORDERED: Furosemide 10 MG/ML 4ML Vial IV SCH (14:00)
--- NOTE | 2024-04-01 15:17 | NUR ---
Patient is lying in bed and alert. Family is bedside. I have a short conversation with the patient and family in the pt's rm. I provided therapeutic listening, encouragement and prayer. I then had a lengthy conversation with the patient's spouse, Daryn, in the hallway. He shares with me about the patient's medical history, current problems and the plan going forward. He then shares about his medical history, his tour in [place] and the PTSD that followed. He shares about the patient's strong Chrisitan joslyn and deep love and how they have overcome many obstacles in their lives. I provided a calming presence and gentle certified genetic counselor. Daryn responded well and showed signs of greater peace.
[2024-04-01 16:25] VITALS: BP 105/56
--- NOTE | 2024-04-01 17:30 | NUR ---
shift summary patient neuro remains unchanged. vitals remain stable. patient worked with therapy today. no acute changes this shift. see previous note
[2024-04-01 19:49] VITALS: BP 115/62
--- NOTE | 2024-04-01 19:52 | NUR ---
ASSESSMENT/ASSUMED CARE PT LYING IN BED WITH HOB UP. DENIES PAIN OR DISCOMFORT. LUNGS CLEAR BUT DECREASED ON 4 LITERS VIA OXYMASK. DENIES SOB OR COUGH. STATES,"MY BREATHING IS BETTER THAN WHEN I CAME IN". HEART RATE AND BP STABLE. DENIES CHEST PAIN OR PRESSURE. BT+ABD SOFT AND NONTENDER. DENIES N/V. IV TO LEFT AC SALINE LOCKED. ABLE TO DRAW BLOOD AND FLUSH WITHOUT DIFFICULTY. LEFT KNEE INCISION NO REDNESS OR DRAINAGE NOTED. BOONE HOSE ON TO LEFT LEG. PT REPOSTIONED. COCCYX DRSG INTACT. SEE WOUND PHOTOS. ENCOURAGED TO TO C&DB.
[2024-04-01] MEDS ORDERED: Arginine/Glutamine/Calcium Hmb 1 Packet PO SCH (21:00)
--- NOTE | 2024-04-01 22:52 | NUR ---
PAIN PT C/O PAIN TO LEFT LEG AND COCCYX. MED PER EMAR, AND REPOSITIONED TO LEFT OFF COCCYX
[2024-04-01 23:56] VITALS: BP 107/51
[2024-04-02 03:25] VITALS: BP 116/62
[2024-04-02 04:17] LABS: BASOPHILS ABSOLUTE AUTO 0.05 K/mm3 (0.00-0.23); BASOPHILS PERCENT AUTO 1 % (0-2); EOSINOPHILS ABSOLUTE AUTO 0.52 K/mm3 (0.00-0.68); EOSINOPHILS PERCENT AUTO 6 % (0-6); Hematocrit 29.7 % (33.0-51.0); Hemoglobin 9.3 g/dL (11.5-16.0); IMMATURE GRAN ABSOLUTE AUTO 0.03 K/mm3 (0.00-0.10); IMMATURE GRAN PERCENT AUTO 0 % (0-1); LYMPHOCYTES ABSOLUTE AUTO 1.76 K/mm3 (0.84-5.20); LYMPHOCYTES PERCENT AUTO 20 % (21-46); MONOCYTES ABSOLUTE AUTO 1.15 K/mm3 (0.16-1.47); MONOCYTES PERCENT AUTO 13 % (4-13); Mean Corpuscular HGB 30.2 pg (26.0-34.0); Mean Corpuscular HGB Conc 31.3 g/dL (31.5-36.5); Mean Corpuscular Volume 96 fL (80-100); Mean Platelet Volume 8.9 fL (9.1-12.4); NEUTROPHILS PERCENT AUTO 61 % (41-73); NRBC Auto 1.1 /100 WBC (0.0-0.2); Platelet Count 588 K/mm3 (150-400); RDW Coefficient Variation 21.5 % (11.7-14.2); RDW Standard Deviation 72.4 fL (35.1-46.3); Red Blood Cell Count 3.08 M/mm3 (3.80-5.20); White Blood Cell Count 9.01 K/mm3 (4.00-11.30)
[2024-04-02 04:31] LABS: Bun/Creatinine Ratio 24.7 (12.0-20.0); Calcium, Blood 8.3 mg/dL (8.5-10.1); Creatinine, Blood 0.69 mg/dL (0.40-1.00); Potassium, Blood 3.7 mmol/L (3.5-5.5)
--- NOTE | 2024-04-02 05:18 | NUR ---
SHIFT SUMMARY PT RESTING QUIETLY DURING THE NIGHT. MED ONCE DURING THE NIGHT FOR COCCYX AND LEFT LEG PAIN. MED WITH OXYCODONE WITH GOOD RESULTS. LUNGS CLEAR BUT DECREASED ON 4 LITER O2 VIA OXYMASK. SPO2 DOWN TO LOW 80'S WHEN REPOSITIONED, BUT PT RETURNS TO LOW 90'S WITHIN A FEW MIN OF REST. DENIES SOB. HEART RATE REGULAR AND BP STABLE. PT TURNED SIDE TO SIDE Q2HRS TO KEEP OFF COCCYX. PUREWICK AND ATTENDS CHANGED DURING THE NIGHT. ENCOURAGED PT TO C&DB. NO ACUTE CHANGE. REPORT TO ON COMING NURSE
[2024-04-02 07:14] VITALS: BP 123/73
--- NOTE | 2024-04-02 10:20 | NUR ---
am note this rn assumed care at 0700. vital signs stable. tele sinus rhythm, patient is alert and oriented x4. neuro is intact. patient is able to make needs known. patient spo2 >90% on 4l oxymask. patient does desat with activity. denies chest pain/pressure. reports pain in coccyx and medicated per emar. see emar. see shift assessment for further detials. plan of care is up to date at this time.
[2024-04-02 11:12] VITALS: BP 99/55
--- NOTE | 2024-04-02 13:01 | NUR ---
Attempted to reach pt's Daryn by phone, left a voicemail. Awaiting return call to discuss goals of care.
--- NOTE | 2024-04-02 15:47 | NUR ---
Pt's and adult children at bedside-we met today to discuss plan of care. Pt appeared to be resting comfortably, and did not participate in the discussion. We discussed SNF vs hospice, and at this time the patient's is leaning toward home with hospice as the best option, but hasn't made a final decision yet until they discuss if further with the patient. Plan to return for follow up visit before end of day today.
--- NOTE | 2024-04-02 16:22 | NUR ---
Pt's remains at bedside, other family have gone home. Pt still appears to be sleeping and Daryn states he prefers to let her sleep, but will talk to her when he wakes her up for dinner. He states, "The kids are all on board, and I know hospice is the right choice, I just have to make sure by janette is ok with it." Daryn states if they go with hospice, he has a preference for [facility] hospice. Updated bedside RN, CHEO and will leave report for palliative RN tomorrow. Also updated [facility] that admission may be on Friday or Friday. Mary Jane at [facility] states they have hospice availability for this patient on Friday or Friday.
[2024-04-02 16:36] VITALS: BP 112/76
--- NOTE | 2024-04-02 18:07 | NUR ---
shift summary patient slept majority of the afternoon. family at bedside majority of the day. patient vitals remain stable. spo2 >90% on 5l oxymask. patient declines with activity and does better when hyperoxygenated. patient sat in chair for a majority of the morning. patient family currently in room discussing goals of care and plan with the patient. at this time plan is up to date. no acute changes. see previous notes
[2024-04-02 19:53] VITALS: BP 103/60
[2024-04-02 23:50] VITALS: BP 124/66
[2024-04-03 03:54] VITALS: BP 123/71
[2024-04-03 04:16] LABS: BASOPHILS ABSOLUTE AUTO 0.07 K/mm3 (0.00-0.23); BASOPHILS PERCENT AUTO 1 % (0-2); EOSINOPHILS ABSOLUTE AUTO 1.03 K/mm3 (0.00-0.68); EOSINOPHILS PERCENT AUTO 11 % (0-6); Hemoglobin 9.3 g/dL (11.5-16.0); IMMATURE GRAN ABSOLUTE AUTO 0.03 K/mm3 (0.00-0.10); IMMATURE GRAN PERCENT AUTO 0 % (0-1); LYMPHOCYTES ABSOLUTE AUTO 2.43 K/mm3 (0.84-5.20); LYMPHOCYTES PERCENT AUTO 27 % (21-46); MONOCYTES ABSOLUTE AUTO 1.06 K/mm3 (0.16-1.47); MONOCYTES PERCENT AUTO 12 % (4-13); Mean Corpuscular HGB 30.1 pg (26.0-34.0); Mean Corpuscular Volume 97 fL (80-100); Mean Platelet Volume 9.1 fL (9.1-12.4); NEUTROPHILS ABSOLUTE AUTO 4.47 K/mm3 (1.96-9.15); NEUTROPHILS PERCENT AUTO 49 % (41-73); NRBC ABSOLUTE 0.06 K/mm3 (0.00-0.02); NRBC Auto 0.7 /100 WBC (0.0-0.2); Platelet Count 590 K/mm3 (150-400); RDW Standard Deviation 73.8 fL (35.1-46.3); Red Blood Cell Count 3.09 M/mm3 (3.80-5.20); White Blood Cell Count 9.09 K/mm3 (4.00-11.30)
[2024-04-03 04:43] LABS: Calcium, Blood 8.6 mg/dL (8.5-10.1); Creatinine, Blood 0.67 mg/dL (0.40-1.00); Potassium, Blood 3.9 mmol/L (3.5-5.5)
--- NOTE | 2024-04-03 06:43 | NUR ---
SHIFT SUMMARY PATIENT HAD AN OVERALL UNEVENTFUL NIGHT. VITALLY STABLE. INTERMITTENT ICING TO LEFT KNEE - TENDER, WARMTH, SWELLING NOTED - UNCHANGED THROUGHOUT THE NIGHT. Q2 TURNS. YEAST TO BILATERAL BREAST FOLDS - CLEANSED AND APPLIED ANTIFUNGAL POWDER. FAMILY AT BEDSIDE, PLANNING TO PROGRESS TO [facility].
[2024-04-03 07:30] VITALS: BP 112/72
[2024-04-03 15:25] VITALS: BP 122/63
--- NOTE | 2024-04-03 17:04 | NUR ---
SHIFT SUMMARY PT REMAINS ALERT AND ORIENTED. BP STABLE. HR REMAINS NSR. O2 SATS REMAIN ABOVE 90% ON 5L OXYMASK. PT COMPLAINED OF PAIN TO KNEE EARLY IN SHIFT THAT WAS RELEIVED WITH MEDICATION ADMINISTRATION. PT REPOSITIONED Q2H. PLAN TO DISCHARGE ON HOSPICE TOMORROW AM. SPOUSE AT BEDSIDE MOST OF SHIFT. WILL REPORT OFF TO FIBERGLASS DOWEL DRAWING OPERATOR RN
[2024-04-03 19:29] VITALS: BP 120/66
--- NOTE | 2024-04-03 19:42 | NUR ---
ASSUMPTION OF CARE ASSUMED CARE OF THIS PT AT 1900. PT ABLE TO APPROPRIATELY EXPRESS NEEDS, MET BY RN UPON INITIAL ASSESSMENT. PT IS RESTING COMFORTABLY, PAIN LEVEL 5/10. RN TREATED WITH PRN PAIN MEDS ORDERED. PT IS VITALLY STABLE WITH NO S/S ACUTE DISTRESS. SON AT BEDSIDE COMFORTING PATIENT.
[2024-04-04 04:20] VITALS: BP 115/70
[2024-04-04] MEDS ORDERED: ALBU2.5V5 INH (10:44)
[2024-04-04] MEDS ORDERED: DOCU100 PO (10:44)
[2024-04-04] MEDS ORDERED: JUVEN PACKET1 EAC3 PO (10:44)
[2024-04-04] MEDS ORDERED: MORP20L PO (10:45)
[2024-04-04] MEDS ORDERED: FURO40 PO (10:45)
--- NOTE | 2024-04-04 11:20 | NUR ---
UPDATE PT REMAINS ALERT AND ORIENTED THIS SHIFT. VS STABLE. PT REMAINS ON 5L VIA OXYMASK. PT COMPLAINED OF PAIN TO COCCYX ULCER AFTER BED BATH THIS AM. PT ALSO COMPLAINED OF PAIN TO LEFT KNEE AND MEDICATED PER EMAR. ALL DISCHARGE INSTRUCTIONS PROVIDED TO PATIENT AND PT EDUCATED ON MEDICATIONS. ALL HOSPICE NEEDS COORDINATED BY CARE MANAGEMENT. TRANSPORT IN FOR [facility] HOME. PT TAKEN OUT VIA GURNEY BY [facility].
== END 2024-04-04 11:23 | disposition home or self-care (01) | DRG 291 ==
LOC: ER 12:46 → ERHOLD 12:47 → PCU 12:47
PROVIDERS: Emergency Medicine; Family Medicine; Nurse Practitioner Acute Care; ADMIT Internal Medicine
DX: I11.0 Hypertensive heart disease with heart failure (principal); I50.43 Acute on chronic combined systolic (congestive) and diastolic (congestive) heart failure; J96.21 Acute and chronic respiratory failure with hypoxia; I50.810 Right heart failure, unspecified; I27.20 Pulmonary hypertension, unspecified; J44.9 Chronic obstructive pulmonary disease, unspecified; E78.5 Hyperlipidemia, unspecified; D75.839 Thrombocytosis, unspecified; Z66 Do not resuscitate; M25.562 Pain in left knee; R54 Age-related physical debility; L89.159 Pressure ulcer of sacral region, unspecified stage; D64.9 Anemia, unspecified; E66.9 Obesity, unspecified; Z68.31 Body mass index [BMI] 31.0-31.9, adult; Z85.72 Personal history of non-Hodgkin lymphomas; Z85.42 Personal history of malignant neoplasm of other parts of uterus; Z85.528 Personal history of other malignant neoplasm of kidney; J43.9 Emphysema, unspecified; Z88.0 Allergy status to penicillin; Z88.8 Allergy status to other drugs, medicaments and biological substances; Z79.01 Long term (current) use of anticoagulants; Z79.899 Other long term (current) drug therapy; Z79.2 Long term (current) use of antibiotics; Z79.891 Long term (current) use of opiate analgesic; Z98.51 Tubal ligation status; Z90.81 Acquired absence of spleen; Z90.5 Acquired absence of kidney; Z90.710 Acquired absence of both cervix and uterus; Z90.722 Acquired absence of ovaries, bilateral; Z90.79 Acquired absence of other genital organ(s); Z87.891 Personal history of nicotine dependence; Z79.82 Long term (current) use of aspirin
CPT/HCPCS: 0241U; 36415; 71260; 73560-LT; 80048; 80053; 83735; 83880; 84145; 84484; 85025; 85027; 93005; 93010; 94640; 94762; 96374-59; 97110; 97162; 97166; 97530; 99285-25; A9270; G0378; J1940; Q9967

== ENCOUNTER 2024-07-26 14:15 | Emergency (ER) | payer OTHER ==
[~2024-07-26] VITALS: Ht 160 cm; Wt 76.2 kg
[~2024-07-26 14:15] MED LIST changes: +ALBU2.5V5 INH; +DOCU100 PO; +JUVEN PACKET1 EAC3 PO; +MORP20L PO
[2024-07-26] MEDS ORDERED: DULOXETINE HCL60 M1 PO (15:29)
[2024-07-26] MEDS ORDERED: OxyCODONE 10/Acetamin 325 TABLET PO ONE (15:40)
[2024-07-26 16:16] VITALS: BP 117/84
[2024-07-26] MEDS ORDERED: ACET500 PO (19:21)
== END 2024-07-26 19:38 | disposition home or self-care (01) ==
LOC: ER 14:15
DX: S63.266A Dislocation of metacarpophalangeal joint of right little finger, initial encounter (principal); S05.11XA Contusion of eyeball and orbital tissues, right eye, initial encounter; S80.211A Abrasion, right knee, initial encounter; J44.9 Chronic obstructive pulmonary disease, unspecified; E78.5 Hyperlipidemia, unspecified; I10 Essential (primary) hypertension; W01.0XXA Fall on same level from slipping, tripping and stumbling without subsequent striking against object, initial encounter; Z87.891 Personal history of nicotine dependence; Z79.899 Other long term (current) drug therapy; Z88.0 Allergy status to penicillin; Z88.8 Allergy status to other drugs, medicaments and biological substances
CPT/HCPCS: 26725; 70450; 70486; 73130; 73140; 73562-RT; 99284-25; A9270

== ENCOUNTER 2024-08-11 15:36 | Inpatient (IN) | payer OTHER ==
[~2024-08-11] VITALS: Ht 162.6 cm; Wt 75.0 kg
[~2024-08-11 15:36] MED LIST changes: +ACET500 PO; +DULOXETINE HCL60 M1 PO
[2024-08-11 15:55] LABS: Base Excess Venous -2.4 mmol/L; Bicarbonate Venous 21.6 mmol/L (24.0-30.0); pH Blood Venous 7.34 (7.34-7.37)
[2024-08-11 16:00] LABS: Hematocrit 49.7 % (33.0-51.0); Hemoglobin 16.5 g/dL (11.5-16.0); Mean Corpuscular HGB 27.9 pg (26.0-34.0); Mean Corpuscular HGB Conc 33.2 g/dL (31.5-36.5); Mean Corpuscular Volume 84 fL (80-100); Mean Platelet Volume 9.7 fL (9.1-12.4); NRBC ABSOLUTE 0.02 K/mm3 (0.00-0.02); NRBC Auto 0.2 /100 WBC (0.0-0.2); Platelet Count 377 K/mm3 (150-400); RDW Coefficient Variation 23.3 % (11.7-14.2); RDW Standard Deviation 70.6 fL (35.1-46.3); Red Blood Cell Count 5.91 M/mm3 (3.80-5.20); White Blood Cell Count 12.37 K/mm3 (4.00-11.30)
[2024-08-11] MEDS ORDERED: Albuterol 2.5 MG/3 ML VIAL INH SCH (16:10)
[2024-08-11 16:17] LABS: CORONAVIRUS COVID-19 AG Negative (NEGATIVE); INFLUENZA A AG Negative (NEGATIVE); INFLUENZA B AG Negative (NEGATIVE)
[2024-08-11 16:23] LABS: Albumin, Blood 1.9 g/dL (3.4-5.0); Albumin/Globulin Ratio 0.4 (0.8-1.8); Bilirubin, Total 1.7 mg/dL (0.1-1.0); Bun/Creatinine Ratio 52.8 (12.0-20.0); Calcium, Blood 8.8 mg/dL (8.5-10.1); Creatinine, Blood 1.06 mg/dL (0.40-1.00); Globulin, Blood 5.4 g/dL (2.2-4.0); Potassium, Blood 4.6 mmol/L (3.5-5.5); Total Protein, Blood 7.3 g/dL (6.4-8.2)
[2024-08-11 16:48] LABS: BAND PERCENT MAN 15 % (0-8); BASOPHILS PERCENT MAN 0 % (0-2); EOSINOPHILS PERCENT MAN 0 % (0-6); LYMPHOCYTES % ATYPICAL MANUAL 2 % (0-0); LYMPHOCYTES ABSOLUTE MAN 3.21 K/mm3 (0.84-5.20); LYMPHOCYTES PERCENT MAN 24 % (21-46); MONOCYTES ABSOLUTE MAN 1.85 K/mm3 (0.16-1.47); MONOCYTES PERCENT MAN 15 % (4-13); NEUTROPHILS ABSOLUTE MAN 7.29 K/mm3 (1.96-9.15); SEG NEUTROPHILS PERCENT MAN 44 % (41-73); TOTAL CELLS COUNTED 100
[2024-08-11] MEDS ORDERED: Furosemide 10 MG/ML 4ML Vial IV ONE ×2 (17:40→20:30)
[2024-08-11] MEDS ORDERED: FLU VACC TS2024-25(6MOS UP)/PF 45 MCG/0.5 ML SYRINGE IM SCH (18:55)
[2024-08-11] MEDS ORDERED: Ondansetron HCl 2 MG / ML 2ML Vial IV PRN (18:55)
[2024-08-11] MEDS ORDERED: Albuterol 2.5 MG/3 ML VIAL INH PRN (18:55)
[2024-08-11] MEDS ORDERED: Ipratropium/Albuterol SulF 2.5-0.5MG/3 ML Amp INH SCH (19:00)
[2024-08-11] MEDS ORDERED: CefTRIAXone Sodium 1,000 MG in NS 100 ML IV SCH (19:15)
[2024-08-11] MEDS ORDERED: Azithromycin 500 MG in NS 250 ML IV SCH (19:30)
[2024-08-11 20:40] LABS: PCO2 Arterial 38.9 mmHg (35-45); PO2 Arterial 107 mmHg (80-100)
[2024-08-11 20:41] LABS: pH Blood Arterial 7.28 (7.35-7.45)
[2024-08-11] MEDS ORDERED: Apixaban 5 MG Tab PO SCH (21:00)
[2024-08-11] MEDS ORDERED: Lactobacil 2-S.Thermo-Bifido 1 1 Cap PO SCH (21:00)
[2024-08-11 21:17] LABS: Adenovirus Not Detected (NOT DETECT); Bordetella pertussis Not Detected (NOT DETECT); Chlamydophila pneumoniae Not Detected (NOT DETECT); Coronavirus 229E Not Detected (NOT DETECT); Coronavirus HKU1 Not Detected (NOT DETECT); Coronavirus NL63 Not Detected (NOT DETECT); Coronavirus OC43 Not Detected (NOT DETECT); Human Metapneumovirus Not Detected (NOT DETECT); Human Rhinovirus/Enterovirus Not Detected (NOT DETECT); Influenza A/2009-H1 Detected (NOT DETECT); Influenza A/H1 Not Detected (NOT DETECT); Influenza A/H3 Not Detected (NOT DETECT); Influenza B Not Detected (NOT DETECT); Mycoplasma pneumoniae Not Detected (NOT DETECT); Parainfluenza Virus 1 Not Detected (NOT DETECT); Parainfluenza Virus 2 Not Detected (NOT DETECT); Parainfluenza Virus 3 Not Detected (NOT DETECT); Parainfluenza Virus 4 Not Detected (NOT DETECT); Respiratory Syncytial Virus Not Detected (NOT DETECT); SARS-Cov-2 (COVID-19), BioFire Not Detected (NOT DETECT)
[2024-08-11 21:44] VITALS: BP 106/67
[2024-08-11] MEDS ORDERED: Oseltamivir Phosphate 75 MG Cap PO SCH ×2 (22:00→22:03)
[2024-08-11] MEDS ORDERED: NS 250 ML IV ONE (22:00)
[2024-08-11] MEDS ORDERED: Norco 5-325 Ta1 EACH PO (22:05)
[2024-08-11] MEDS ORDERED: Vancomycin HCL 2,000 MG in NS 500 ML IV ONE (22:20)
[2024-08-11 23:31] VITALS: BP 108/71
[2024-08-11 23:44] LABS: Base Excess Venous -10.8 mmol/L; Bicarbonate Venous 16.7 mmol/L (24.0-30.0); PCO2 Venous 35.8 mmHg (38-42); pH Blood Venous 7.26 (7.34-7.37)
[2024-08-12] VITALS (8 sets, daily range): BP systolic 82–114; BP diastolic 56–92
[2024-08-12] MEDS ORDERED: NS 1,000 ML IV ONE (00:10)
[2024-08-12] MEDS ORDERED: NS 250 ML IV ONE (00:10)
[2024-08-12 01:00] LABS: Bun/Creatinine Ratio 44.4 (12.0-20.0); Calcium, Blood 9.1 mg/dL (8.5-10.1); Creatinine, Blood 1.35 mg/dL (0.40-1.00); Potassium, Blood 4.9 mmol/L (3.5-5.5)
[2024-08-12] MEDS ORDERED: Acetaminophen 325 MG TABLET PO PRN (03:25)
[2024-08-12 05:08] LABS: Bicarbonate Venous 18.7 mmol/L (24.0-30.0)
[2024-08-12 05:09] LABS: PCO2 Venous 42.2 mmHg (38-42)
[2024-08-12 05:10] LABS: pH Blood Venous 7.28 (7.34-7.37)
[2024-08-12 05:23] LABS: Hematocrit 48.5 % (33.0-51.0); Hemoglobin 15.9 g/dL (11.5-16.0); LYMPHOCYTES ABSOLUTE AUTO 1.14 K/mm3 (0.84-5.20); LYMPHOCYTES PERCENT AUTO 9 % (21-46); MONOCYTES PERCENT AUTO 11 % (4-13); Mean Corpuscular HGB 28.2 pg (26.0-34.0); Mean Corpuscular HGB Conc 32.8 g/dL (31.5-36.5); Mean Corpuscular Volume 86 fL (80-100); Mean Platelet Volume 9.8 fL (9.1-12.4); NRBC ABSOLUTE 0.05 K/mm3 (0.00-0.02); NRBC Auto 0.4 /100 WBC (0.0-0.2); Platelet Count 382 K/mm3 (150-400); RDW Coefficient Variation 23.7 % (11.7-14.2); Red Blood Cell Count 5.63 M/mm3 (3.80-5.20); White Blood Cell Count 12.51 K/mm3 (4.00-11.30)
[2024-08-12 05:32] LABS: BASOPHILS ABSOLUTE AUTO 0.04 K/mm3 (0.00-0.23); BASOPHILS PERCENT AUTO 0 % (0-2); EOSINOPHILS PERCENT AUTO 0 % (0-6); IMMATURE GRAN ABSOLUTE AUTO 0.34 K/mm3 (0.00-0.10); IMMATURE GRAN PERCENT AUTO 3 % (0-1); NEUTROPHILS ABSOLUTE AUTO 9.59 K/mm3 (1.96-9.15); NEUTROPHILS PERCENT AUTO 77 % (41-73)
[2024-08-12] MEDS ORDERED: Sodium Bicarb 8.4% Inj 100 MEQ in Sodium Chloride 0.45% 1,000 ML IV SCH (06:35)
[2024-08-12 06:48] LABS: Albumin, Blood 1.9 g/dL (3.4-5.0); Albumin/Globulin Ratio 0.4 (0.8-1.8); Bilirubin, Total 1.1 mg/dL (0.1-1.0); Calcium, Blood 8.7 mg/dL (8.5-10.1); Creatinine, Blood 1.29 mg/dL (0.40-1.00); Globulin, Blood 5.2 g/dL (2.2-4.0); Magnesium, Blood 2.5 mg/dL (1.6-2.4); Potassium, Blood 4.3 mmol/L (3.5-5.5); Total Protein, Blood 7.1 g/dL (6.4-8.2)
--- NOTE | 2024-08-12 07:35 | NUR ---
SHIFT SUMMARY PATIENT ARRIVED TO PCU 17 VIA STRETCHER AT 2130. SLIDE TRANSFER COMPMLETED DUE TO WORK OF BREATHING AND PATIENT BEING ON BIPAP. PATIENT IS ALERT AND ORIENTED X4. HAD NO COMPLAINTS OF PAIN. PATIENT TACHYPNIC WITH ACCESSORY MUSCLE USE, BIPAP SETTINGS 14/7 AT 50% FIO2, 6 LITERS O2 VIA NC FOR BREAKS FROM THE BIPAP. PATIENT'S LACTIC ACID AND VBG PH CRITICAL, MD NOTIFIED, SEE ORDERS. BLOOD PRESSURE STABLE. WILL CONTINUE TO MONITOR. CALL LIGHT WITHIN REACH.
--- NOTE | 2024-08-12 07:49 | NUR ---
PATIENT TO CT STUDY NOW, DG BUCKNER ACCOMPANIED, 6L O2 VIA NC
--- NOTE | 2024-08-12 08:17 | NUR ---
PATIENT BACK FROM STUDY, ALERT AND OREINTED X4, SOFT VOICE, EKG AT BEDSIDE NOW
[2024-08-12] MEDS ORDERED: Metoprolol Tartrate 25 MG Tab PO SCH (08:49)
[2024-08-12] MEDS ORDERED: Atorvastatin 40 MG Tab PO SCH (09:00)
[2024-08-12] MEDS ORDERED: DULoxetine HCL 60 MG Capsule DR PO SCH (09:00)
[2024-08-12] MEDS ORDERED: Metoprolol Tartrate 1 MG/ML 5 ML VIAL IV PRN (10:30)
--- NOTE | 2024-08-12 14:13 | NUR ---
REPORTED TO PALLIATIVE CARE RN, REPORTED TO DR ZULETA, BLADDER SCAN SHOWED 400 ML, PATIENT NOT IN ANY DISCOMFORT, BOTH PATIENT AND AGREE TO BE A DNR AND ARE SAYING THEY WILL PROBABLEY GO BACK ON HOME HEALTH WITH HOSPICE, ECHO IN ROOM NOW, HOLDING STRAIGHT CATH UNTIL PATIENT HAS DISCOMFORT OR CHANGES TO COMFORT CARE PER DR ZULETA
[2024-08-12] MEDS ORDERED: Insulin Human Lispro 100 Units/ML 3ML Syringe SC SCH (18:00)
--- NOTE | 2024-08-12 18:12 | NUR ---
PATIENTS PAOLO MILLS CAME TO THE PALLIATIVE CARE OFFICE. GOALS OF CARE CONVERSATION, AND SUPPORTATIVE VISIT. PATIENT GRADUATED OFF OF [facility] APPROX 1 MONTH AGO. GENE WOULD LIKE TO RESUME HOSPICE SERVICES UPON DISCHARGE. CONTINUE TO TREAT ACUTE ILLNESS AND OPTIMIZE PATIENT UNTIL STABLE FOR DISCHARGE. OBTAINED UPDATED COPY OF POST FROM [facility] SENT TO MEDICAL RECORDS, AND PLACED IN CHART. UPDATED POLST DNR AND COMFORT MEASURES OF 04/10/2024.
--- NOTE | 2024-08-12 18:24 | NUR ---
A;ERT AND OREINTED X3, WHISPERED VOICE, DNR, PER PALLIATIVE CARE PATIENT NOT HOSPICE YET, TREATING FLU, URINE RETENTION, BLADDER SCAN AT 322, STRAIGHT CATH ATTEMPTED UNSUCCESSFUL, REPORTED TO CHARGE RNS, PATEINT DENIED ANY ABD DISCOMFORT OR RETENTION PAIN, DENIES RETENTION HISTORY, ECHO AND CT DONE TODAY, 6L O2 VIA NC, EASILY SOB WITH TALKING. PERIWIK IN PLACE, PATIENT HAS NOT VOIDED DR ZULETA AWARE, MATAMOROS TO TRY TO BE PLACED AGAIN, CALL LIGHT WITH IN REACH, WILL RELAY TO PM RN
[2024-08-12] MEDS ORDERED: Oseltamvir Phosphate 30 MG Cap PO SCH (21:00)
[2024-08-12] MEDS ORDERED: Vancomycin HCL 1,000 MG in NS 250 ML IV SCH (22:00)
[2024-08-13] VITALS (20 sets, daily range): BP systolic 84–115; BP diastolic 53–92
[2024-08-13 04:47] LABS: Hematocrit 40.4 % (33.0-51.0); Hemoglobin 13.7 g/dL (11.5-16.0); Mean Corpuscular HGB 28.5 pg (26.0-34.0); Mean Corpuscular HGB Conc 33.9 g/dL (31.5-36.5); Mean Corpuscular Volume 84 fL (80-100); Mean Platelet Volume 9.1 fL (9.1-12.4); NRBC ABSOLUTE 0.08 K/mm3 (0.00-0.02); NRBC Auto 0.6 /100 WBC (0.0-0.2); Platelet Count 326 K/mm3 (150-400); RDW Coefficient Variation 23.4 % (11.7-14.2); Red Blood Cell Count 4.81 M/mm3 (3.80-5.20); White Blood Cell Count 13.39 K/mm3 (4.00-11.30)
[2024-08-13 05:16] LABS: Albumin, Blood 1.7 g/dL (3.4-5.0); Albumin/Globulin Ratio 0.4 (0.8-1.8); Bilirubin, Total 0.6 mg/dL (0.1-1.0); Bun/Creatinine Ratio 51.9 (12.0-20.0); Calcium, Blood 8.6 mg/dL (8.5-10.1); Creatinine, Blood 1.31 mg/dL (0.40-1.00); Globulin, Blood 4.2 g/dL (2.2-4.0); Total Protein, Blood 5.9 g/dL (6.4-8.2)
[2024-08-13 05:17] LABS: BAND PERCENT MAN 16 % (0-8); BASOPHILS PERCENT MAN 0 % (0-2); EOSINOPHILS PERCENT MAN 0 % (0-6); LYMPHOCYTES % ATYPICAL MANUAL 1 % (0-0); LYMPHOCYTES ABSOLUTE MAN 0.66 K/mm3 (0.84-5.20); LYMPHOCYTES PERCENT MAN 4 % (21-46); MONOCYTES ABSOLUTE MAN 0.93 K/mm3 (0.16-1.47); MONOCYTES PERCENT MAN 7 % (4-13); NEUTROPHILS ABSOLUTE MAN 11.78 K/mm3 (1.96-9.15); SEG NEUTROPHILS PERCENT MAN 72 % (41-73); TOTAL CELLS COUNTED 100
--- NOTE | 2024-08-13 05:46 | NUR ---
SHIFT SUMMARY PATIENT ALERT, ORIENTED x3, SOFT SPOKEN BUT ABLE TO MAKE NEEDS KNOWN TO STAFF. PATIENT ON 6L NC WHILE AWAKE, ON CPAP/BIPAP WHILE SLEEPING, SPO2 >90%. PATIENT OCCASIONALLY WOULD DESAT DURING THE NIGHT BUT ABLE TO RECOVER WITH DEEP BREATHING. ON TELE READING SR-ST. BP STABLE. MATAMOROS INSERTED PER ORDER THIS SHIFT, DARK YELLOW URINE OUT. NO OTHER CHANGES, WILL REPORT TO DAY SHIFT RN.
[2024-08-13 06:55] LABS: Base Excess Venous -0.3 mmol/L; Bicarbonate Venous 23.5 mmol/L (24.0-30.0); pH Blood Venous 7.31 (7.34-7.37)
[2024-08-13] MEDS ORDERED: Cefepime HCl 1,000 MG in NS 100 ML IV SCH (08:28)
[2024-08-13] MEDS ORDERED: Furosemide 10 MG/ML 4ML Vial IV SCH (09:00)
[2024-08-13] MEDS ORDERED: Fludrocortisone Acetate 0.1 MG Tab PO SCH (17:12)
--- NOTE | 2024-08-13 18:37 | NUR ---
SHIFT SUMMERY: NEURO: NO ACUTE CHANGES SINCE BEGINING OF SHIFT. CARDIAC: PT HAD DENIED ANY CP DURING SHIFT. PT BECAME HYPOTENSIVE THIS AFTERNOON AROUND 1600. DR BALTAZAR NOTIFIED. PROVIDER STARTED PT ON FLORNIF FOR HYPOTENSION AND STATED THAT IF HER BP DID NOT IMPROVE THAT SHE WOULD NEED TO BE TRANSFERED TO ICU ON A LEVOPHED DRIP. THIS RN CONTACTED DR ZULETA REGARDING PLAN WITH CONCEREN ABOUT PLAN AND THAT WE SHOULD TALK ABOUT PLAN WITH FAMILY FIRST SINCE PTS END GOAL IS TO GO HOME ON HOSPICE. DR ZULETA ORDERED PT MIDIDRINE. PT WAS IN AFIB FOR A SHORT AMOUNT OF TIME THIS AFTERNOON. RESP: PT WAS TITRATED DOWN TO 4L NC THIS AM. AT 1600 PT REQUIRED 8L NC TO BRING O2 SATS >90%. DENIES SOB. /GI: PT HAS MATAMOROS IN PLACE. DRAINING YELLOW URINE. PT DID NOT HAVE A BOWEL MOVEMENT TODAY. NO OTHER SIGNIFICANT EVENTS HAPPENED DURING THIS SHIFT. WILL CONTINUE TO CARE FOR PT TILL END OF SHIFT.
[2024-08-13] MEDS ORDERED: Midodrine 5 MG Tab PO SCH (19:00)
[2024-08-13] MEDS ORDERED: Furosemide 10 MG / ML 2ML Vial IV SCH (20:00)
[2024-08-13 22:02] LABS: Vancomycin, Trough 24.5 ug/mL (5.0-10.0)
[2024-08-14 00:15] VITALS: BP 101/60
[2024-08-14 04:20] VITALS: BP 110/62
[2024-08-14 04:28] LABS: Hemoglobin 13.3 g/dL (11.5-16.0); Mean Corpuscular HGB 28.2 pg (26.0-34.0); Mean Corpuscular HGB Conc 34.1 g/dL (31.5-36.5); Mean Corpuscular Volume 83 fL (80-100); Mean Platelet Volume 9.8 fL (9.1-12.4); NRBC ABSOLUTE 0.11 K/mm3 (0.00-0.02); NRBC Auto 0.7 /100 WBC (0.0-0.2); Platelet Count 312 K/mm3 (150-400); RDW Coefficient Variation 22.8 % (11.7-14.2); Red Blood Cell Count 4.71 M/mm3 (3.80-5.20); White Blood Cell Count 15.53 K/mm3 (4.00-11.30)
[2024-08-14 05:03] LABS: BAND PERCENT MAN 7 % (0-8); BASOPHILS PERCENT MAN 0 % (0-2); EOSINOPHILS PERCENT MAN 0 % (0-6); LYMPHOCYTES ABSOLUTE MAN 0.93 K/mm3 (0.84-5.20); LYMPHOCYTES PERCENT MAN 6 % (21-46); MONOCYTES ABSOLUTE MAN 0.62 K/mm3 (0.16-1.47); MONOCYTES PERCENT MAN 4 % (4-13); NEUTROPHILS ABSOLUTE MAN 13.97 K/mm3 (1.96-9.15); SEG NEUTROPHILS PERCENT MAN 83 % (41-73); TOTAL CELLS COUNTED 100
[2024-08-14 05:15] LABS: Albumin, Blood 1.6 g/dL (3.4-5.0); Albumin/Globulin Ratio 0.4 (0.8-1.8); Bilirubin, Total 0.8 mg/dL (0.1-1.0); Bun/Creatinine Ratio 55.2 (12.0-20.0); Calcium, Blood 8.4 mg/dL (8.5-10.1); Creatinine, Blood 1.05 mg/dL (0.40-1.00); Globulin, Blood 4.3 g/dL (2.2-4.0); Potassium, Blood 4.3 mmol/L (3.5-5.5); Total Protein, Blood 5.9 g/dL (6.4-8.2)
--- NOTE | 2024-08-14 07:21 | NUR ---
SHIFT SUMMARY: A&OX4, PLEASANT AND APPRECIATIVE. VOICE IS HARSE AND SOFT SPOKEN, BUT ABLE TO MAKE NEEDS KNOWN. BP SOFT, SYS >100, IV LASIX ADMINISTERED. 8L HI-FLOW NC, BIPAP 14/8 AND 45% FiO2, SATS >92%. SR 80-90'S. AT 2200, CRITICAL VANCO TROUGH, PHARMACY CALLED AND MADE AWARE. VANCO ON HOLD PER ORDER. C/O PAIN 8/10 TO THE RIGHT SIDE OF HER JAW, ADMINISTERED PO TYLENOL. ON A CONS CARB DIET, POOR APPETITE. MATAMOROS CATHETER DRAINING ADEQUATE AMOUNTS OF YELLOW URINE. NO BM THIS SHIFT, NO BOWEL CARE ORDERED. REPOSITIONED TOLERATED. BED IN LOWEST POSITION, CALL LIGHT WITHIN REACH. DROPLET PRECAUTIONS MAINTAINED.
[2024-08-14 07:48] VITALS: BP 104/63
[2024-08-14] MEDS ORDERED: GuaiFENesin 600 MG TabCR PO SCH (10:00)
[2024-08-14] MEDS ORDERED: Vancomycin HCL 750 MG in NS 250 ML IV SCH (11:00)
[2024-08-14 13:17] VITALS: BP 110/67
[2024-08-14 16:55] VITALS: BP 106/63
--- NOTE | 2024-08-14 18:25 | NUR ---
SHIFT SUMMERY: NERUO: NO ACUTE CHANGES. PT DID COMPLAIN OF FEELING TOO TIRED TO TAKE ANY PILLS THIS EVENING. CARDIAC: NO ACUTE CHANGES. PT REMAINS ON TELE. DENIES ANY CP. RESP: PT REMAINS ON 6-8L NC. PTS LUNG SOUNDS HAVE NOT IMPROVED MUCH THROUGHOUT SHIFT. PT HAS HAD A WEAK NONPRODUCTIVE COUGH ALL TODAY AND WAS UNABLE TO CLEAT ANY SPUTUM. PT AND AGREED TO DEEP SUCTION. RT CAME TO BEDSIDE TO PERFORM DEEP SUCTIONING. SPUTUM WAS COLLECTED AND SENT TO LAB. GI/: MATAMOROS REMAINS IN PLACE. THIS RN TALKED TO REGARDING PTS PLAN OF CARE. PALLIATIVE CARE CAME TO BEDSIDE TO TALK TO TO CLARIFY SOME CONFUSION ABOUT PLAN TO DC TO HOME. WOULD LIKE PT TO CONTINUE TO RECIEVE TREATMENT UNTILL FRIDAY AND THEN TO DC TO HOME ON HOSPICE ON FRIDAY.
[2024-08-14 20:46] VITALS: BP 111/75
[2024-08-14] MEDS ORDERED: Metoprolol Tartrate 25 MG Tab PO SCH (21:00)
[2024-08-15] VITALS (7 sets, daily range): BP systolic 113–161; BP diastolic 66–93
[2024-08-15] MEDS ORDERED: MethylPREDNISolone Sod Succ 125 MG Vial IV SCH
--- NOTE | 2024-08-15 01:50 | NUR ---
UPDATE PT'S BLOOD SUGAR CHECK AT 005 WAS 68. GAVE PT A PUDDING AND SOME ORANGE JUICE. RECHECK AT 0135 WAS 75. GAVE PT SOME MORE ORANGE JUICE AND SOME COTTAGE CHEESE. SHE ONLY CONSUMES SMALL AMOUNTS. CALLED RESIDENT AT 0145. NO NEW ORDERS AT THIS TIME. SHE WANTS TO RECHECK BG IN AN HOUR.
[2024-08-15 04:49] LABS: Hematocrit 41.1 % (33.0-51.0); Mean Corpuscular HGB 28.2 pg (26.0-34.0); Mean Corpuscular HGB Conc 34.1 g/dL (31.5-36.5); Mean Corpuscular Volume 83 fL (80-100); Mean Platelet Volume 10.3 fL (9.1-12.4); NRBC ABSOLUTE 0.11 K/mm3 (0.00-0.02); NRBC Auto 0.6 /100 WBC (0.0-0.2); Platelet Count 299 K/mm3 (150-400); RDW Standard Deviation 68.8 fL (35.1-46.3); Red Blood Cell Count 4.96 M/mm3 (3.80-5.20); White Blood Cell Count 19.56 K/mm3 (4.00-11.30)
[2024-08-15 05:13] LABS: BAND PERCENT MAN 3 % (0-8); BASOPHILS PERCENT MAN 0 % (0-2); EOSINOPHILS PERCENT MAN 0 % (0-6); LYMPHOCYTES % ATYPICAL MANUAL 1 % (0-0); LYMPHOCYTES ABSOLUTE MAN 0.78 K/mm3 (0.84-5.20); LYMPHOCYTES PERCENT MAN 3 % (21-46); MONOCYTES ABSOLUTE MAN 0.39 K/mm3 (0.16-1.47); MONOCYTES PERCENT MAN 2 % (4-13); NEUTROPHILS ABSOLUTE MAN 18.38 K/mm3 (1.96-9.15); SEG NEUTROPHILS PERCENT MAN 91 % (41-73); TOTAL CELLS COUNTED 100
[2024-08-15 05:29] LABS: Bun/Creatinine Ratio 53.8 (12.0-20.0); Calcium, Blood 8.8 mg/dL (8.5-10.1); Creatinine, Blood 0.8 mg/dL (0.40-1.00); Potassium, Blood 4.8 mmol/L (3.5-5.5)
--- NOTE | 2024-08-15 06:37 | NUR ---
SHIFT SUMMARY: A&OX3, HAS BEEN HALLUCINATING. SOFT SPOKEN,BUT ABLE TO MAKE NEEDS KNOWN. VSS ON 5-6L HI-FLOW NC, BIPAP 14/8 AND 50% FiO2, SATS >92%. PT WOKE UP ON TWO SEPARATE OCCASIONS, UNABLE TO TOLERATE WEARING THE BIPAP, AND PULLED IT OFF, DESATTING IN THE LOW 80'S. BOTH TIMES PT REFUSED TO PUT THE BIPAP BACK ON. ONE TIME THE PT ASKED THE NURSE TO JUST LEAVE HER ALONE, THAT SHE DIDN'T WANT TO WEAR ANY OXYGEN. SR-ST 90'S-100'S. DENIES PAIN. ON A CONS CARB DIET, POOR APPETITE. BG AT 0052 WAS 68. FED PT A PUDDING AND GAVE HER SOME ORANGE JUICE. RECHECK WAS 75, FED PT SOME COTTAGE CHEESE. RESIDENT CALLED, NO NEW ORDERS AND RECHECK IN AN HOUR WAS 100. BG AT 0530 WAS 147. MATAMOROS CATHETER DRAINING ADEQUATE AMOUNTS OF YELLOW URINE. NO BM THIS SHIFT, NO BOWEL CARE ORDERED. REPOSITIONED TOLERATED. BED IN LOWEST POSITION, CALL LIGHT WITHIN REACH. DROPLET PRECAUTIONS MAINTAINED.
[2024-08-15] MEDS ORDERED: Magnesium Hydroxide Conc 10 ML UDC PO PRN (08:20)
[2024-08-15] MEDS ORDERED: Docusate Sodium 100 MG Cap PO PRN (08:20)
[2024-08-15] MEDS ORDERED: Sennosides 8.6 MG Tab PO SCH (09:00)
[2024-08-15] MEDS ORDERED: Ketorolac Tromethamine 15mg Vial IV PRN (09:10)
[2024-08-15 10:33] LABS: Vancomycin, Random 19.8 ug/mL
[2024-08-15] MEDS ORDERED: Vancomycin HCL 750 MG in NS 250 ML IV SCH (13:00)
--- NOTE | 2024-08-15 17:15 | NUR ---
UPDATE: THIS RN AT BEDSIDE TO ASSESS PT. PT DIFFICULT TO ARROUSE AND ONLY RESPONDS TO PAIN. PUPILS EQUAL AND RESPONSIVE. PT NOT HYPOGLYCEMIC. VSS. PT ONLY OPENING EYES BRIEFLY AND THEN CLOSES EYES AND DOES NOT RESPOND. PROVIDER AT BEDSIDE TO EVALUATE PT. PT PLACED ON BIPAP FOR CONCERN OF HYPERCAPNIA. PT TOLERATING BIPAP AT THIS TIME
--- NOTE | 2024-08-15 17:45 | NUR ---
UPDATE: PT AWAKE AND TRYING TO PULL OFF BIPAP. PT PLACED ON NASAL CANULA DUE TO NOT KEEPING ON NASAL CANULA. PT AWAKE AND ALERT AT THIS TIME. ANSWERING QUESTIONS TO HER BEST ABILITY.
--- NOTE | 2024-08-15 18:42 | NUR ---
SHIFT SUMMERY: NEURO: SEE PREVIOUS UPDATE NOTES. CARDIAC: NO ACUTE CHANGES. REMAINED FREE OF ANY CP. CONTINUES ON TELE. RESP: REMAINS ON 4-8L NC. GI/: MATAMOROS IN PLACE. DRAINING YELLOW URINE. PT HAS NOT HAD A BOWEL MOVEMENT. PLAN FOR PT TO GO HOME WITH HOSPICE TOMORROW. NO OTHER SIGNIFICANT EVENTS HAPPENED DURING THIS SHIFT. WILL CONTINUE TO CARE FOR PT TILL END OF SHIFT.
[2024-08-15] MEDS ORDERED: Azithromycin 250 MG Tab PO SCH (21:00)
[2024-08-15 21:01] LABS: Base Excess Venous 2.9 mmol/L; Bicarbonate Venous 25.2 mmol/L (24.0-30.0); PCO2 Venous 52.2 mmHg (38-42); pH Blood Venous 7.35 (7.34-7.37)
--- NOTE | 2024-08-15 21:18 | NUR ---
ASSUMED CARE PT SOMNULENT; SOFT SPOKEN (UNINTELLIGIBLE). BIPAP PUT ON AND RESIDENT CALLED W/ ORDERS FOR VBG. AT TIME OF THIS NOTE PT APPEARS LESS SOMNULENT. VSS AT THIS TIME.
[2024-08-16 00:07] VITALS: BP 140/87
[2024-08-16 04:10] VITALS: BP 142/91
[2024-08-16 04:12] LABS: BASOPHILS ABSOLUTE AUTO 0.03 K/mm3 (0.00-0.23); BASOPHILS PERCENT AUTO 0 % (0-2); EOSINOPHILS PERCENT AUTO 0 % (0-6); Hematocrit 41.9 % (33.0-51.0); Hemoglobin 13.9 g/dL (11.5-16.0); IMMATURE GRAN PERCENT AUTO 1 % (0-1); LYMPHOCYTES ABSOLUTE AUTO 1.19 K/mm3 (0.84-5.20); LYMPHOCYTES PERCENT AUTO 17 % (21-46); MONOCYTES ABSOLUTE AUTO 0.42 K/mm3 (0.16-1.47); MONOCYTES PERCENT AUTO 6 % (4-13); Mean Corpuscular HGB 27.4 pg (26.0-34.0); Mean Corpuscular HGB Conc 33.2 g/dL (31.5-36.5); Mean Corpuscular Volume 83 fL (80-100); Mean Platelet Volume 9.9 fL (9.1-12.4); NEUTROPHILS ABSOLUTE AUTO 5.25 K/mm3 (1.96-9.15); NEUTROPHILS PERCENT AUTO 75 % (41-73); NRBC ABSOLUTE 0.11 K/mm3 (0.00-0.02); NRBC Auto 1.6 /100 WBC (0.0-0.2); Platelet Count 325 K/mm3 (150-400); RDW Coefficient Variation 23.1 % (11.7-14.2); RDW Standard Deviation 68.7 fL (35.1-46.3); Red Blood Cell Count 5.07 M/mm3 (3.80-5.20); White Blood Cell Count 6.99 K/mm3 (4.00-11.30)
[2024-08-16 04:32] LABS: Bun/Creatinine Ratio 55.1 (12.0-20.0); Calcium, Blood 9.5 mg/dL (8.5-10.1); Creatinine, Blood 1.07 mg/dL (0.40-1.00); Potassium, Blood 4.6 mmol/L (3.5-5.5)
--- NOTE | 2024-08-16 05:53 | NUR ---
SHIFT SUMMARY PT RESTED QUIETLY T/O NIGHT. SOMNULENT AT START OF SHIFT, DIFFICULT TO AROUSE AND WAS UNINTELLIGIBLE WHEN SPEAKING. BIPAP PLACED AND VBG ORDERED. PT STILL LETHARGIC, BUT NOW AROUSES TO VERBAL STIMULI AND ANSWERS ORIENTATION QUESTIONS APPROPRIATELY. NO OTHER ACUTE EVENTS.
[2024-08-16] MEDS ORDERED: Cefepime HCl 2,000 MG in NS 100 ML IV SCH (09:00)
[2024-08-16 09:23] VITALS: BP 145/92
--- NOTE | 2024-08-16 10:13 | NUR ---
AM NOTE this rn assumed care at 0700. vital signs stable. tele sinus rhythm. patient is alert and oriented to self, place, and person. patient unable to state correct date and this rn oriented to her correct date. denies pain, chest pain/pressure or shortness of breath. patient had an episode of vomitting after drinking an entire ensure and threw it up. patient cleaned up and bed bath given and linen change. see shift assessment for further detials. md juárez in to see patient and plan for patient to go home today
[2024-08-16] MEDS ORDERED: GUAI600T33 PO (11:25)
[2024-08-16] MEDS ORDERED: ONDA4ODT MM (11:34)
[2024-08-16] MEDS ORDERED: MIDO5 PO (11:34)
[2024-08-16] MEDS ORDERED: DULCOLAX400 MG/5 M PO (11:34)
[2024-08-16] MEDS ORDERED: METO25 PO (11:34)
[2024-08-16] MEDS ORDERED: SENN187 PO (11:35)
[2024-08-16] MEDS ORDERED: Prednisone10 MG PO (11:37)
--- NOTE | 2024-08-16 13:12 | NUR ---
discharge this rn went over discharge instructions with patient and patient . and patient verbalized understanding. hospice has set up hospital bed. patient awaiting ride.
--- NOTE | 2024-08-16 13:29 | NUR ---
DISCHARGE patient left with [facility] to go home. patient left in no distress and took all of patients belongings home.
== END 2024-08-16 13:37 | disposition hospice, home (50) | DRG 871 ==
LOC: ER 15:36 → PCU 18:49 → ERHOLD 18:49 → PCU 21:28
PROVIDERS: Nurse Practitioner Acute Care; Student in an Organized Health Care Education/Training Program; ADMIT Internal Medicine
PROC: 3E03329 Introduction of Other Anti-infective into Peripheral Vein, Percutaneous Approach (ICD-10-PCS; principal; 2024-08-11)
PROC: 5A09557 Assistance with Respiratory Ventilation, Greater than 96 Consecutive Hours, Continuous Positive Airway Pressure (ICD-10-PCS; 2024-08-11)
PROC: 5A0935A Assistance with Respiratory Ventilation, Less than 24 Consecutive Hours, High Flow/Velocity Cannula (ICD-10-PCS; 2024-08-13)
DX: A41.9 Sepsis, unspecified organism (principal); J18.9 Pneumonia, unspecified organism; J96.21 Acute and chronic respiratory failure with hypoxia; J96.22 Acute and chronic respiratory failure with hypercapnia; N17.9 Acute kidney failure, unspecified; E87.21 Acute metabolic acidosis; J44.0 Chronic obstructive pulmonary disease with (acute) lower respiratory infection; R65.20 Severe sepsis without septic shock; R33.9 Retention of urine, unspecified; I48.91 Unspecified atrial fibrillation; Z66 Do not resuscitate; J10.1 Influenza due to other identified influenza virus with other respiratory manifestations; I48.0 Paroxysmal atrial fibrillation; I27.20 Pulmonary hypertension, unspecified; E78.5 Hyperlipidemia, unspecified; I50.810 Right heart failure, unspecified; J84.10 Pulmonary fibrosis, unspecified; Z88.0 Allergy status to penicillin; Z88.8 Allergy status to other drugs, medicaments and biological substances; Z51.5 Encounter for palliative care; Z85.42 Personal history of malignant neoplasm of other parts of uterus; Z85.72 Personal history of non-Hodgkin lymphomas; Z79.899 Other long term (current) drug therapy; Z79.01 Long term (current) use of anticoagulants; Z98.51 Tubal ligation status; Z90.5 Acquired absence of kidney; Z90.81 Acquired absence of spleen; Z90.710 Acquired absence of both cervix and uterus; Z90.722 Acquired absence of ovaries, bilateral; Z90.79 Acquired absence of other genital organ(s); Z98.890 Other specified postprocedural states; Z87.891 Personal history of nicotine dependence; Z99.81 Dependence on supplemental oxygen
CPT/HCPCS: 0202U; 36415; 36600; 51702; 71045; 71260; 80048; 80053; 80202; 82803; 82947; 83036; 83605; 83735; 83880; 84145; 84484; 85025; 87070; 87077; 87147; 87186; 87205; 87428-QW; 93005; 93010; 93306; 94640; 94660; 94664; 94760; 94762; 99285-25; A9270; C1751; J0456; J0692; J0696; J1885; J1940; J2405; J2919; J3370; J7030; J7040; J7050; Q9967